=== PATIENT | female | born 1965 | race Caucasian/White ===

== ENCOUNTER → 2017-05-28 | Outpatient (CLI) | payer BC ==
[~2017-05-28] MED LIST: /ONDA4TA SL; /PANT40TA OR; CIPR25SS OR; DICY20TA2 OR; FLAG500T OR; PAIN325T OR; TRAM50TA2 OR
[2017-05-28 08:07] LABS: MEAN CORPUSCULAR HEMOGLOBIN 29.9 pg (27.0-33.0); MEAN CORPUSCULAR HGB CONC 33.8 g/dl (32.0-36.5); MEAN CORPUSCULAR VOLUME 88.6 fl (80.0-96.0); RED CELL DISTRIBUTION WIDTH 13.3 % (11.5-14.5); WHITE BLOOD COUNT 6.6 K/mm3 (4.0-10.0)
[2017-05-28 08:44] LABS: ALBUMIN 3.3 GM/DL (3.2-5.2); ALKALINE PHOSPHATASE 64 U/L (45-117); ALT/SGPT 29 U/L (12-78); ANION GAP 11 MEQ/L (8-16); AST/SGOT 16 U/L (15-37); BILIRUBIN,TOTAL 0.4 MG/DL (0.2-1.0); BLOOD UREA NITROGEN 17 MG/DL (7-18); CALCIUM LEVEL 8.7 MG/DL (8.5-10.1); CARBON DIOXIDE LEVEL 25 MEQ/L (21-32); CHLORIDE LEVEL 107 MEQ/L (98-107); CHOLESTEROL LEVEL 179 MG/DL (<200); CREATININE FOR GFR 0.87 MG/DL (0.55-1.02); GLOMERULAR FILTRATION RATE > 60.0 (>58); GLUCOSE, FASTING 89 MG/DL (70-105); PERCENT SATURATION 23.8 % (13.2-45.0); POTASSIUM SERUM 3.7 MEQ/L (3.5-5.1); SODIUM LEVEL 143 MEQ/L (136-145); THYROXINE (T4) 10.4 UG/DL (4.5-12.0); TOTAL IRON BINDING CAPACITY 323 UG/DL (250-450); TOTAL PROTEIN 7.4 GM/DL (6.4-8.2); TRIGLYCERIDES LEVEL 304 MG/DL (<150)
[2017-05-28 10:44] LABS: LUTEINIZING HORMONE 8.3 mIU/mL
[2017-05-28 10:45] LABS: FOLLICLE STIMULATING HORMONE 26.2 mIU/mL; VITAMIN B12 LEVEL 283 PG/ML (247-911)
== END ==
LOC: M LAB 07:30
PROVIDERS: ATTEND Family Medicine
DX: D64.9 Anemia, unspecified (principal); R53.83 Other fatigue

== ENCOUNTER → 2017-06-18 | Outpatient (CLI) | payer BC ==
--- NOTE | 2017-06-18 10:42 | REP ---
PELVIC ULTRASOUND: Real-time sonographic evaluation of the pelvis is performed utilizing transabdominal and endovaginal technique. The bladder measures 6.5 x 4.7 x 7.1 cm. There patient has had prior hysterectomy and right salpingo-oophorectomy. The left ovary measures 6.0 x 2.6 x 3.1 cm. The left ovary measures 6.0 x 2.6 x 3.1 cm. A cyst of the left ovary is simple in nature measuring 3.1 x 2.1 x 3.0 cm and another smaller simple cyst is seen measuring 2.5 x 1.8 x 2.4 cm. There is also a 1.3 cm cyst. Hyperechoic nodule in the vaginal cuff measures 8 mm in diameter possibly representing a complex cyst. No free fluid is seen. IMPRESSION: Status post SAMMIE-RSO. Left ovary is enlarged containing simple cysts as discussed above.
== END ==
LOC: M WHC 09:28
PROVIDERS: ATTEND Nurse Practitioner Women's Health
DX: R10.32 Left lower quadrant pain (principal)

== ENCOUNTER 2018-04-17 19:05 | Emergency (ER) | payer BC ==
[2018-04-17 19:53] LABS: BASO % 0.2 % (0.0-1.0); EOS # 0.1 10^3/uL (0.0-0.50); EOS % 0.8 % (0.0-3.0); HEMATOCRIT 40.2 % (36.0-47.0); HEMOGLOBIN 13.2 g/dl (12.0-15.5); IMMATURE GRANULOCYTE % 0.3 % (0-3.0); LYMPH # 1.5 10^3/uL (1.5-4.5); LYMPH % 14.9 % (24.0-44.0); MEAN CORPUSCULAR HEMOGLOBIN 28.8 pg (27.0-33.0); MEAN CORPUSCULAR HGB CONC 32.8 g/dl (32.0-36.5); MEAN CORPUSCULAR VOLUME 87.8 fl (80.0-96.0); MONO # 0.7 10^3/uL (0.0-0.8); MONO % 7.3 % (0.0-5.0); NEUTROPHILS # 7.8 10^3/uL (1.8-7.7); NEUTROPHILS % 76.5 % (36.0-66.0); PLATELET COUNT, AUTOMATED 286 10^3/uL (150-450); RED BLOOD COUNT 4.58 10^6/uL (4.00-5.40); RED CELL DISTRIBUTION WIDTH 12.4 % (11.5-14.5); WHITE BLOOD COUNT 10.2 10^3/uL (4.0-10.0)
[2018-04-17 20:17] LABS: ALBUMIN 3.6 GM/DL (3.2-5.2); ALKALINE PHOSPHATASE 75 U/L (45-117); ALT/SGPT 31 U/L (12-78); ANION GAP 8 MEQ/L (8-16); AST/SGOT 28 U/L (7-37); BILIRUBIN,DIRECT 0.1 MG/DL (0.0-0.2); BILIRUBIN,TOTAL 0.7 MG/DL (0.2-1.0); BLOOD UREA NITROGEN 17 MG/DL (7-18); CALCIUM LEVEL 9.1 MG/DL (8.5-10.1); CARBON DIOXIDE LEVEL 28 MEQ/L (21-32); CHLORIDE LEVEL 106 MEQ/L (98-107); GLOMERULAR FILTRATION RATE > 60.0 (>51); GLUCOSE, FASTING 99 MG/DL (70-100); LIPASE 267 U/L (73-393); POTASSIUM SERUM 3.9 MEQ/L (3.5-5.1); SODIUM LEVEL 142 MEQ/L (136-145); TOTAL PROTEIN 7.6 GM/DL (6.4-8.2)
[2018-04-17] MEDS: NS 1,000 ML IV (20:22)
[2018-04-17] MEDS: ONDANSETRON 4MG/2ML VIAL (J2405) IV (20:23)
[2018-04-17] MEDS: MORPHINE 4 MG/ML 1ML VIAL/SYRINGE (J2270) IV (20:23)
[2018-04-17] MEDS ORDERED: ISOVUE-370 76% 100ML VIAL (Q9967) As Ordered (20:23)
[2018-04-17] MEDS: ONDANSETRON 4 MG ORAL DISINTEGRATING TAB (Q0162 PER 1MG) PO (22:00)
[2018-04-17] MEDS: OXYCODONE/APAP 5MG/325MG(BULK FOR ED) 1 TABLET PO (22:00)
[2018-04-17] MEDS: metroNIDAZOLE (FLAGYL) 500 MG TAB PO (22:00)
[2018-04-17] MEDS: CIPROFLOXACIN 500 MG TAB PO (22:00)
== END 2018-04-17 22:10 | disposition home or self-care (01) ==
LOC: M ED 19:05
DX: K57.32 Diverticulitis of large intestine without perforation or abscess without bleeding (principal); Z88.5 Allergy status to narcotic agent; Z79.899 Other long term (current) drug therapy
CPT/HCPCS: J2270

== ENCOUNTER 2018-05-18 19:17 | Emergency (ER) | payer BC | END 2018-05-18 20:04 | disposition home or self-care (01) | LOC: M ED 19:17 | DX: S50.11XA Contusion of right forearm, initial encounter (principal); W01.0XXA Fall on same level from slipping, tripping and stumbling without subsequent striking against object, initial encounter; Y92.098 Other place in other non-institutional residence as the place of occurrence of the external cause; I10 Essential (primary) hypertension; J45.909 Unspecified asthma, uncomplicated; K21.9 Gastro-esophageal reflux disease without esophagitis; G43.909 Migraine, unspecified, not intractable, without status migrainosus; Z85.41 Personal history of malignant neoplasm of cervix uteri; Z88.5 Allergy status to narcotic agent; Z79.899 Other long term (current) drug therapy | CPT/HCPCS: 73090 ==

== ENCOUNTER → 2018-11-18 | Outpatient (CLI) | payer BC ==
[~2018-11-18] MED LIST changes: +BYST10TA2 PO; +CIPR-249 PO; +FLAG500T PO; +PERC5TAB12 PO; +PHEN-239 PO; +SING10TA32 PO; +TRIAPOW43 PO; +ZOFR4TAB14 PO; +ZYRTTAB8 PO
--- NOTE | 2018-11-19 13:37 | REP ---
ULTRASOUND OF THE PELVIS: This study is compared to that on 11/05/2015 and earlier studies. The patient is post hysterectomy and right oophorectomy. On the present study there is a cyst in the left ovary measuring 1.3 x 0.7 x 1.0 cm. The bladder measures 9.3 x 6.5 x 9.1 cm. IMPRESSION: Post hysterectomy and right oophorectomy. Again identified left ovary cysts. These have been seen in the past and there has been no significant change. Electronically Signed by Joel Escobedo MD 11/19/2018 02:09 P
== END ==
LOC: M RAD 16:56
PROVIDERS: ATTEND Family Medicine
DX: R10.2 Pelvic and perineal pain (principal); R19.04 Left lower quadrant abdominal swelling, mass and lump

== ENCOUNTER → 2019-01-27 | Outpatient (CLI) | payer BC ==
[~2019-01-27] MED LIST changes: -/ONDA4TA SL; -/PANT40TA OR; +ONDA-1 SL; +PROT1TAB2 OR
[2019-01-27 09:44] LABS: HEMATOCRIT 42.9 % (36.0-47.0); HEMOGLOBIN 13.9 g/dl (12.0-15.5); MEAN CORPUSCULAR HEMOGLOBIN 29.4 pg (27.0-33.0); MEAN CORPUSCULAR HGB CONC 32.4 g/dl (32.0-36.5); MEAN CORPUSCULAR VOLUME 90.7 fl (80.0-96.0); PLATELET COUNT, AUTOMATED 299 10^3/uL (150-450); RED BLOOD COUNT 4.73 10^6/uL (4.00-5.40); WHITE BLOOD COUNT 5.3 10^3/uL (4.0-10.0)
[2019-01-27 10:10] LABS: INR 0.88
[2019-01-27 10:17] LABS: ALBUMIN 3.9 GM/DL (3.2-5.2); ALT/SGPT 31 U/L (12-78); BILIRUBIN,TOTAL 0.4 MG/DL (0.2-1.0); BLOOD UREA NITROGEN 23 MG/DL (7-18); CALCIUM LEVEL 9.2 MG/DL (8.5-10.1); CARBON DIOXIDE LEVEL 29 MEQ/L (21-32); CHLORIDE LEVEL 105 MEQ/L (98-107); CHOLESTEROL LEVEL 197 MG/DL (<200); CHOLESTEROL RISK RATIO 4.104 (<5); CREATININE FOR GFR 0.88 MG/DL (0.55-1.30); GLOMERULAR FILTRATION RATE > 60.0 (>51); GLUCOSE, FASTING 90 MG/DL (70-100); HDL CHOLESTEROL 48 MG/DL (>40); LDL CHOLESTEROL 111 MG/DL (<100); NON-HDL-C 149 MG/DL; SODIUM LEVEL 140 MEQ/L (136-145); TOTAL PROTEIN 7.7 GM/DL (6.4-8.2); TRIGLYCERIDES LEVEL 189 MG/DL (<150)
[2019-01-27 11:41] LABS: HEMOGLOBIN A1c 5.7 %
--- NOTE | 2019-01-27 17:00 | ECGEPIP ---
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
--- NOTE | 2019-01-28 01:19 | REP ---
Clinical: Hypertension . Comparison: 05/27/2016 . Technique: PA and lateral. Findings: The mediastinum and cardiac silhouette are normal. The lung chapman are clear and without acute consolidation, effusion, or pneumothorax. The skeletal structures are intact and normal. Impression: 1. No acute cardiopulmonary process. Electronically Signed by Beka Gann MD 01/28/2019 01:10 A
== END ==
LOC: M LAB 09:04
PROVIDERS: ATTEND Family Medicine
DX: I10 Essential (primary) hypertension (principal)

== ENCOUNTER 2019-02-16 06:12 | Day surgery (SDC) | payer BC ==
[~2019-02-16] VITALS: Ht 160 cm; Wt 78.4 kg
[~2019-02-16 06:12] MED LIST changes: +CETI10CA2 PO; +ZOFR4TAB16 PO
[2019-02-16 06:46] LABS: HEMATOCRIT 40.9 % (36.0-47.0); HEMOGLOBIN 13.3 g/dl (12.0-15.5); MEAN CORPUSCULAR HEMOGLOBIN 29.6 pg (27.0-33.0); MEAN CORPUSCULAR HGB CONC 32.5 g/dl (32.0-36.5); MEAN CORPUSCULAR VOLUME 91.1 fl (80.0-96.0); PLATELET COUNT, AUTOMATED 277 10^3/uL (150-450); RED BLOOD COUNT 4.49 10^6/uL (4.00-5.40); WHITE BLOOD COUNT 6.3 10^3/uL (4.0-10.0)
[2019-02-16] MEDS ORDERED: BUPIVACAINE HCL 0.25% 30 ML VIAL As Ordered ONE (06:52)
[2019-02-16] MEDS ORDERED: CVS1CAP5 PO (06:55)
[2019-02-16] MEDS ORDERED: LIDOCAINE 2% INJ 100 MG/5 ML SDV (FOR ANES.) As Ordered ONE (07:10)
[2019-02-16] MEDS ORDERED: ROCURONIUM BROMIDE 50 MG/5 ML VIAL As Ordered ONE (07:10)
[2019-02-16] MEDS ORDERED: PROPOFOL 200 MG/20 ML VIAL As Ordered ONE (07:10)
[2019-02-16] MEDS ORDERED: fentaNYL 250 MCG/5 ML INJECTION (J3010) As Ordered ONE (07:11)
[2019-02-16] MEDS ORDERED: MIDAZOLAM INJ 2 MG/2 ML VIAL (J2250) As Ordered ONE (07:11)
[2019-02-16] MEDS ORDERED: SCOPOLAMINE 1MG TRANSDERMAL PATCH As Ordered ONE (07:28)
[2019-02-16] MEDS ORDERED: LR 1,000 ML IV SCH ×2 (07:45→09:15)
[2019-02-16] MEDS ORDERED: SCOPOLAMINE 1MG TRANSDERMAL PATCH TOP ONE (08:00)
[2019-02-16] MEDS ORDERED: dexameTHASONE 4 MG/ML 1ML VIAL (J1100) As Ordered ONE (08:12)
[2019-02-16] MEDS ORDERED: METOCLOPRAMIDE INJ 10MG/2ML VIAL (J2765) As Ordered ONE (08:12)
[2019-02-16] MEDS ORDERED: ONDANSETRON 4MG/2ML VIAL (J2405) As Ordered ONE ×2 (08:12→12:03)
[2019-02-16] MEDS ORDERED: KETOROLAC 60 MG/2 ML VIAL (J1885) As Ordered ONE (08:12)
[2019-02-16] MEDS ORDERED: GLYCOPYRROLATE INJ 0.2 MG/ML 2 ML VIAL As Ordered ONE (08:41)
[2019-02-16] MEDS ORDERED: NEOSTIGMINE 10 MG/10 ML VIAL (J2710) As Ordered ONE (08:41)
[2019-02-16] MEDS ORDERED: fentaNYL 100 MCG/2 ML INJECTION (J3010) IV PRN (09:15)
[2019-02-16] MEDS ORDERED: PERCOCET 5MG/325MG TAB PO PRN ×2 (09:15)
[2019-02-16] MEDS ORDERED: ONDANSETRON 4MG/2ML VIAL (J2405) IV PRN (09:15)
[2019-02-16] MEDS ORDERED: OXYC1TAB23 PO (11:03)
[2019-02-16] MEDS ORDERED: ACETAMINOPHEN TAB 650MG DOSE (2X325MG) As Ordered ONE (12:25)
[2019-02-16] MEDS ORDERED: ACETAMINOPHEN TAB 650MG DOSE (2X325MG) PO PRN (12:45)
[2019-02-16 13:25] VITALS: BP 122/67
[2019-02-16] MEDS ORDERED: KETOROLAC 30 MG/ML VIAL (J1885) IV PRN (15:00)
--- NOTE | 2019-02-18 12:25 | RO ---
DATE OF PROCEDURE: 02/16/2019 PREOPERATIVE DIAGNOSES 1. Endometriosis. 2. Chronic pelvic pain. POSTOPERATIVE DIAGNOSES 1. Endometriosis. 2. Chronic pelvic pain. OPERATIVE PROCEDURE: 1. Diagnostic operative laparoscopy with left salpingo-oophorectomy. 2. Lysis of adhesions. SURGEON: Trinity Manley MD PASSPORT SUPPORT MANAGER: Kashif Valdes MD ANESTHESIA: General endotracheal anesthesia. ESTIMATED BLOOD LOSS: 5 mL IV FLUIDS: 1 liter of lactated Ringer's solution. URINE OUTPUT: 50 mL PREOPERATIVE ANTIBIOTICS: None. INFECTION CLASSIFICATION: 1. OPERATIVE FINDINGS: Dense left-sided omental adhesions to the pelvic sidewall, normal-appearing left ovary. SPECIMENS: Left fallopian tube and ovary. DESCRIPTION OF OPERATION After informed consent was obtained and written consent was reviewed, the patient was brought to the operating room where she was placed under general endotracheal anesthesia. She was left in the supine position, was prepped and draped in a normal sterile fashion. A Carlisle catheter had been placed and set to gravity. A time out in the operating room was then performed identifying the patient, procedure to be performed as well as drug allergies. 0.25% Marcaine was infused in umbilical region and an 11 mm trocar sleeve was advanced through this incision. The laparoscope was then replaced revealing intra-abdominal placement. A pneumoperitoneum was then obtained with CO2 gas. Two additional port sites were placed on each side of the umbilicus. These areas were infused with 0.25% Marcaine. Incision was made in each one of these areas and 5 mm trocars and sleeves advanced through each one of these incisions under direct visualization. Next, the abdomen was surveyed with the above-noted findings. Using Harmonic Jean-Claude scalpel device, lysis of adhesions was performed releasing the omentum from the pelvic sidewall and clearing up this area with visualization of the left adnexa. Once this was achieved noting hemostasis at the surgical sites, the left infundibulopelvic ligament was cauterized and ligated with good hemostasis noted. The specimen was then removed from the umbilical port site. Surgical sites were reinspected and once again noted to be hemostatic. The pneumoperitoneum was then released. Instruments were removed from the patient's abdomen. Trocars were removed. The skin over all three port sites were closed with #4-0 Monocryl and was dressed with Dermabond. The Carlisle catheter was then removed. The patient was then awakened from general anesthesia and taken to recovery in stable condition. Counts were correct. Dr. Valdes my surgical technician played an essential role during the operation. He assisted with all port placement, tissue retraction, identification, lysis of adhesions as well as the laparoscopic salpingo-oophorectomy, and wound closure. MICHELINE
== END 2019-02-16 13:42 | disposition home or self-care (01) ==
LOC: M SDC 06:12
PROVIDERS: ATTEND Obstetrics & Gynecology
DX: R10.2 Pelvic and perineal pain (principal); N80.8 Other endometriosis; N73.6 Female pelvic peritoneal adhesions (postinfective); I10 Essential (primary) hypertension; K58.8 Other irritable bowel syndrome; K44.9 Diaphragmatic hernia without obstruction or gangrene; K21.9 Gastro-esophageal reflux disease without esophagitis; F32.9 Major depressive disorder, single episode, unspecified; J45.909 Unspecified asthma, uncomplicated; Z79.899 Other long term (current) drug therapy; Z88.5 Allergy status to narcotic agent
CPT/HCPCS: 36415; 58661; 85027; 86850; 86900; 86901; 88305; J1100; J1885; J2250; J2405; J2710; J2765; J3010

== ENCOUNTER 2019-12-03 20:50 | Emergency (ER) | payer BC ==
[~2019-12-03] VITALS: Ht 160 cm; Wt 78.8 kg
[~2019-12-03 20:50] MED LIST changes: +CVS1CAP5 PO; +OXYC1TAB23 PO
[2019-12-03] MEDS ORDERED: ONDANSETRON 4MG/2ML VIAL (J2405) IV ONE (21:45)
[2019-12-03] MEDS ORDERED: NS 1,000 ML IV ONE (21:45)
[2019-12-03 22:15] LABS: BASO % 0.1 % (0.0-1.0); EOS # 0.2 10^3/uL (0.0-0.5); EOS % 2.8 % (0.0-3.0); HEMATOCRIT 42.8 % (36.0-47.0); HEMOGLOBIN 13.7 g/dl (12.0-15.5); LYMPH # 0.8 10^3/uL (1.5-5.0); LYMPH % 9.3 % (24.0-44.0); MEAN CORPUSCULAR HEMOGLOBIN 28.7 pg (27.0-33.0); MEAN CORPUSCULAR VOLUME 89.5 fl (80.0-96.0); MONO # 0.3 10^3/uL (0.0-0.8); NEUTROPHILS # 7.1 10^3/uL (1.5-8.5); NEUTROPHILS % 83.6 % (36.0-66.0); PLATELET COUNT, AUTOMATED 275 10^3/uL (150-450); RED BLOOD COUNT 4.78 10^6/uL (4.00-5.40); WHITE BLOOD COUNT 8.5 10^3/uL (4.0-10.0)
[2019-12-03 22:37] LABS: ALBUMIN 3.7 GM/DL (3.2-5.2); ALT/SGPT 32 U/L (12-78); BILIRUBIN,DIRECT 0.2 MG/DL (0.0-0.2); BILIRUBIN,TOTAL 0.6 MG/DL (0.2-1.0); BLOOD UREA NITROGEN 25 MG/DL (7-18); CALCIUM LEVEL 9.2 MG/DL (8.5-10.1); CARBON DIOXIDE LEVEL 28 MEQ/L (21-32); CHLORIDE LEVEL 104 MEQ/L (98-107); CREATININE FOR GFR 0.88 MG/DL (0.55-1.30); GLOMERULAR FILTRATION RATE > 60.0 (>51); GLUCOSE, FASTING 102 MG/DL (70-100); POTASSIUM SERUM 3.8 MEQ/L (3.5-5.1); SODIUM LEVEL 138 MEQ/L (136-145); TOTAL PROTEIN 7.4 GM/DL (6.4-8.2)
[2019-12-03] MEDS ORDERED: ONDA4TAB6 PO (23:10)
[2019-12-03 23:24] VITALS: BP 134/80
== END 2019-12-04 00:15 | disposition home or self-care (01) ==
LOC: M ED 20:50
DX: A08.4 Viral intestinal infection, unspecified (principal); Z79.899 Other long term (current) drug therapy; Z88.5 Allergy status to narcotic agent
CPT/HCPCS: 80048; 80076; 85025; 96361; 96374; 99284; J2405

== ENCOUNTER → 2020-05-22 | Outpatient (CLI) | payer BC ==
[~2020-05-22] MED LIST changes: +ONDA4TAB6 PO
--- NOTE | 2020-05-22 15:50 | REPVR ---
PROCEDURE INFORMATION: Exam: CT Maxillofacial Without Contrast, Sinus Exam date and time: 05/22/2020 3:36 PM Age: 54 years old Clinical indication: Condition or disease; Other: Sinusitis; Additional info: J32.4 chronic pnsinusitis TECHNIQUE: Imaging protocol: CT Maxillofacial without contrast. Focus on the sinuses. Radiation optimization: All CT scans at this facility use at least one of these dose optimization techniques: automated exposure control; mA and/or kV adjustment per patient size (includes targeted exams where dose is matched to clinical indication); or iterative reconstruction. COMPARISON: No relevant prior studies available. FINDINGS: Frontal sinuses: Normal. No air-fluid levels. Ethmoid air cells: Normal. No air-fluid levels. Sphenoid sinuses: Normal. No air-fluid levels. Maxillary sinuses: Normal. No air-fluid levels. Ostiomeatal units are patent. Orbits: The orbital structures are unremarkable. Nasal cavity/Septum: Mild rightward bowing of the nasal septum is present. Bilateral vitaliy bullosa are noted. Soft tissues: Unremarkable. Bones/joints: Unremarkable. IMPRESSION: No acute abnormality. Electronically signed by: Alon Avila On 05/22/2020 15:50:27 PM
== END ==
LOC: M RAD 15:26
PROVIDERS: ATTEND Otolaryngology
DX: J32.4 Chronic pansinusitis (principal)

== ENCOUNTER 2021-02-14 09:08 | Inpatient (IN) | payer BC ==
[~2021-02-14] VITALS: Ht 160 cm; Wt 77.3 kg
[~2021-02-14 09:08] MED LIST changes: +IBUP-1022 PO; +PRED20TA PO; +VALA1TAB5 PO
[2021-02-14] MEDS ORDERED: ACETAMINOPHEN TAB 650MG DOSE (2X325MG) PO ONE (09:25)
[2021-02-14] MEDS: COMBIVENT RESPIMAT 100-20MCG INHALER 4GM INH SCH ×3 (09:51→10:14)
--- NOTE | 2021-02-14 09:52 | REP ---
INDICATION: Coronavirus workup. Go to priors 01/20/2021 the latest prior also portable COMPARISON: None. TECHNIQUE: Portable FINDINGS: The technique utilized in obtaining the radiograph has magnified the cardiac silhouette and accentuated the interstitial markings. Scattered asymmetric opacities have developed in the lung chapman since the prior exam. These are particular to the right upper and left lower lobe regions. In addition to the portable technique the lung chapman are hypoexpanded further accentuating the suspected findings. There is no change in the osseous structures. IMPRESSION: Scattered opacities and technique as described above. PA and lateral views of the chest with increased inspiration should be considered. <Electronically signed by Cristiano Guerrero > 02/14/21 [id number]
[2021-02-14 10:17] LABS: EOS % 0.5 % (0.0-3.0); HEMATOCRIT 36.9 % (36.0-47.0); HEMOGLOBIN 12.1 g/dl (12.0-15.5); LYMPH # 0.6 10^3/uL (1.5-5.0); LYMPH % 16.1 % (24.0-44.0); MEAN CORPUSCULAR HEMOGLOBIN 29.8 pg (27.0-33.0); MEAN CORPUSCULAR HGB CONC 32.8 g/dl (32.0-36.5); MEAN CORPUSCULAR VOLUME 90.9 fl (80.0-96.0); MONO # 0.1 10^3/uL (0.0-0.8); MONO % 3.3 % (2.0-8.0); NEUTROPHILS # 2.9 10^3/uL (1.5-8.5); NEUTROPHILS % 79.6 % (36.0-66.0); PLATELET COUNT, AUTOMATED 197 10^3/uL (150-450); RED BLOOD COUNT 4.06 10^6/uL (4.00-5.40); WHITE BLOOD COUNT 3.7 10^3/uL (4.0-10.0)
[2021-02-14] MEDS ORDERED: dexameTHASONE 20MG/5ML VIAL (J1100 PER 1MG) IV ONE (10:25)
[2021-02-14] MEDS ORDERED: PRED10TA2 PO (10:35)
[2021-02-14 10:52] LABS: ALBUMIN 2.8 GM/DL (3.2-5.2); ALT/SGPT 49 U/L (12-78); BILIRUBIN,TOTAL 0.3 MG/DL (0.2-1.0); BLOOD UREA NITROGEN 17 MG/DL (7-18); C REACTIVE PROTEIN QUANTITATIV 9.21 MG/DL (0.00-0.30); CALCIUM LEVEL 8.1 MG/DL (8.5-10.1); CARBON DIOXIDE LEVEL 26 MEQ/L (21-32); CHLORIDE LEVEL 104 MEQ/L (98-107); CK-MB VALUE MASS < 1.0 NG/ML (<3.6); CPK CREATINE PHOSPHOKINASE 51 U/L (26-192); FERRITIN 1071 NG/ML (8-252); GLOMERULAR FILTRATION RATE > 60.0 (>51); GLUCOSE, FASTING 95 MG/DL (70-100); LDH LACTATE DEHYDROGENASE 274 U/L (84-246); MB/CK RELATIVE INDEX 1.96 (< OR =4); POTASSIUM SERUM 3.8 MEQ/L (3.5-5.1); SODIUM LEVEL 136 MEQ/L (136-145); TOTAL PROTEIN 6.6 GM/DL (6.4-8.2); TROPONIN I < 0.02 NG/ML (< 0.10)
[2021-02-14] MEDS ORDERED: COMBIVENT RESPIMAT 100-20MCG INHALER 4GM INH PRN (12:15)
[2021-02-14] MEDS ORDERED: ONDANSETRON 4MG/2ML VIAL IV PRN (12:15)
[2021-02-14] MEDS ORDERED: ONDA-83 PO (12:25)
[2021-02-14] MEDS ORDERED: IBUP1TAB6 PO (12:25)
[2021-02-14] MEDS ORDERED: VALA1TAB5 PO (12:26)
[2021-02-14] MEDS ORDERED: TRIA37.5 PO (12:26)
--- NOTE | 2021-02-14 13:04 | HPEPDOC ---
[facility] Medical History & Physical Date of Admission February 14, 2021 Date of Service: February 14, 2021 Primary Care Physician: Richy Arango Attending Physician: YUNG DANIELS MD History and Physical CHIEF COMPLAINT: shortness of breath HISTORY OF PRESENT ILLNESS: Sweta Forrest is a 55 year old female, who recently tested positive for COVID-19, presented to the ED today due to worsening shortness of breath and fatigue. She states her symptoms started late last week with fatigue and shortness of breath, worse on activity. She also noticed nausea, vomiting, and diarrhea over the weekend. She presented to [facility] ED for evaluation and tested positive at that time for COVID-19. She was treated only with IV fluids and sent home with instructions to take tylenol and advil prn and to quarantine. She states that she initially felt better for a day but then her symptoms began to worsen again. She reports recent contacts prior to the onset of symptoms who were asymptomatic but subsequently tests positive for COVID-19. She notes recurrent chills and night sweats at home and fever up to 104F this morning prior to presentation to the ER. She has had a nonproductive cough with chest congestion. She has some pain in the center of her chest which is worse when taking a deep breath and coughing. No palpitations. 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 She was sent home with Valcyclovir and prednisone 60mg. She states she did not tolerate the dose of prednisone and this was lowered by her PCP. Her PCP then extended the course of both valcyclovir and prednisone. Patient notes she was scheduled for the COVID-19 vaccine, but told to delay it while being treated for Soliman's Palsy. PAST MEDICAL HISTORY: Asthma Allergic rhinitis Soliman's Palsy Migraine headaches IBS HTN PAST SURGICAL HISTORY: Hysterectomy Bilateral breast reduction SOCIAL HISTORY: Never smoker. Occasional social alcohol use. No illicit substance use. FAMILY HISTORY: Father with HTN Mother with GI issues, gallbladder disease PGM with pancreatic cancer ALLERGIES: Please see below. REVIEW OF SYSTEMS: 12-point review of systems negative except as listed in HPI HOME MEDICATIONS: Please see below. PHYSICAL EXAMINATION: VITAL SIGNS: See below GENERAL: Alert, comfortable, in no acute distress HEENT: Normocephalic, atraumatic, sclera anicteric, moist mucous membranes NECK: Supple, trachea midline, no lymphadenopathy CARDIOVASCULAR: Regular rate and rhythm, normal S1 and S2. No murmurs, rubs, or gallops RESPIRATORY: Clear to auscultation bilaterally with equal air entry bilaterally. No wheezing, rhonchi, or rales. ABDOMEN: Soft, nontender, nondistended, bowel sounds present. EXTREMITIES: No cyanosis or edema. Pulses 2+/4 in bilateral upper and lower extremities SKIN: [place], warm, dry NEUROLOGIC: Alert and oriented x3 to person, place and time. No focal deficits appreciated PSYCHIATRIC: Mood and affect appropriate LABORATORY DATA: See below. IMAGING: - CXR Scattered opacities and technique as described above. PA and lateral views of the chest with increased inspiration should be considered. MICROBIOLOGY: Please see below. ASSESSMENT: 55 year old female with PMHx of asthma, allergic rhinitis, migraine headaches, IBS, and recently diagnosed Soliman's Palsy who presented to the ED with known COVID-19 symptoms and worsening symptoms, found to have hypoxia and bilateral infiltrates on CXR, admitted for management of COVID-19 pneumonia PLAN: # Acute hypoxia 2/2 COVID-19 pneumonia - supplemental O2 to maintain saturations >90% - telemetry for tachycardia - trend inflammatory labs q2d. trend cbc, bmp, mg, crp, and ldh daily - d-dimer not elevated. will proceed with standard DVT prophylaxis dosing. - tx with IV remdesivir x5 days and IV Decadron x10 days - mucinex, acapella, and incentive spirometer. combivent q4h prn # Asthma / allergic rhinitis - continue home zyrtec and montelukast - currently no home inhalers # HTN - continue home Dyazide and nebivolol # Migraine headaches - continue home nebivolol # Soliman's Palsy - d/c home prednisone as she will be on decadron - completed course of Valacyclovir, will also d/c # IBS - continue probiotic DVT prophylaxis: sc lovenox 40mg DISPOSITION: admitted inpatient to med/surg pending clinical improvement Vital Signs Vital Signs Date Time Temp Pulse Resp B/P (MAP) Pulse Ox O2 Delivery O2 Flow Rate FiO2 02/14/21 11:26 101.5 02/14/21 11:08 100 02/14/21 11:00 103/64 (77) 02/14/21 10:53 18 94 Nasal Cannula 2.0 Laboratory Data Labs 24H Laboratory Tests 2 02/14/21 10:00: POC pH (Misc Panel) 7.570H, POC Base Excess (Misc Panel) 3.0, POC Saturated Percent O2 (Misc) 94L, POC pO2 (Misc Panel) 59.0L, POC pCO2 (Misc Panel) 27.8L, POC HCO3 (Misc Panel) 25.5, POC Total CO2 (Misc Panel) 26.0 02/14/21 10:05: Immature Granulocyte % (Auto) 0.5, Neutrophils (%) (Auto) 79.6H, Lymphocytes (%) (Auto) 16.1L, Monocytes (%) (Auto) 3.3, Eosinophils (%) (Auto) 0.5, Basophils (%) (Auto) 0.0, Neutrophils # (Auto) 2.9, Lymphocytes # (Auto) 0.6L, Monocytes # (Auto) 0.1, Eosinophils # (Auto) 0.0, Basophils # (Auto) 0.0, Nucleated Red Blood Cells % (auto) 0.0, D-Dimer, Quantitative 281.69, Anion Gap 6L, Glomerular Filtration Rate > 60.0, Lactic Acid Level 0.9, Calcium Level 8.1L, Ferritin 1071H, Total Bilirubin 0.3, Aspartate Amino Transf (AST/SGOT) 36, Alanine Aminotransferase (ALT/SGPT) 49, Alkaline Phosphatase 49, Lactate Dehydrogenase 274H, Total Creatine Kinase 51, Creatine Kinase MB < 1.0, Creatine Kinase MB Relative Index 1.96, Troponin I < 0.02, C-Reactive Protein, Quantitative 9.21H, Total Protein 6.6, Albumin 2.8L, Albumin/Globulin Ratio 0.7L CBC/BMP Laboratory Tests 02/14/21 10:05 Microbiology Microbiology 02/14/21 Blood Culture, Received Pending 02/14/21 Blood Culture, Received Pending Home Medications Scheduled Cetirizine HCl (ZyrTEC) 10 Mg Capsule, 10 MG PO DAILY Lactobacillus Combination No.4 (Probiotic) 1 Each Capsule, 1 CAP PO DAILY Montelukast Sodium (Singulair) 10 Mg Tab, 10 MG PO DAILY Nebivolol HCl (Bystolic) 10 Mg Tab, 10 MG PO DAILY Prednisone (Prednisone) 10 Mg Tablet, 10 MG PO DAILY Triamterene/Hydrochlorothiazid (Triamterene-Hctz 37.5-25 mg Tb) 1 Each Tablet, 1 TAB PO DAILY Valacyclovir HCl (Valacyclovir) 1,000 Mg Tablet, 1 GM PO TID STARTED 02/04/21 X 10 DAYS Scheduled PRN Ibuprofen (Ibuprofen) 600 Mg Tablet, 600 MG PO Q6H PRN for PAIN / FEVER Ondansetron HCl (Ondansetron HCl) 4 Mg Tablet, 4 MG PO TID PRN for NAUSEA OR VOMITING Allergies Coded Allergies: codeine (Verified Adverse Reaction, Unknown, N/V/, 02/16/19) GME ATTESTATION GME ATTESTATION My faculty preceptor for this patient encounter was physically present during the encounter and was fully available. All aspects of the patient interview, examination, medical decision making process, and medical care plan development were reviewed and approved by the faculty preceptor. The faculty preceptor is aware and concurs with the plan as stated in the body of this note and will attest to such by his/her cosignature. ATTENDING NOTE I, Yung Daniels, have independently examined this patient and performed my own physical exam, as well as reviewed the documentation and edited where necessary. I have discussed in detail with the resident / student the findings and plan of treatment as documented by the resident / student and edited their note. I agree with their findings and treatment plan and have edited their documentation. I will continue to follow the patient during this hospital stay. MIKAL RAMIREZ D.O. February 14, 2021 13:03 YUNG DANIELS MD February 14, 2021 16:12
[2021-02-14 13:09] VITALS: BP 90/70
[2021-02-14] MEDS: MONTELUKAST 10 MG TAB PO SCH (15:03)
[2021-02-14] MEDS: LACTOBACILLUS ACIDOPHILUS CAP (BACID) PO SCH (15:04)
[2021-02-14] MEDS: CETIRIZINE (ZyrTEC) 10 MG TAB PO SCH (15:04)
[2021-02-14] MEDS: guaiFENesin ER 600 MG TAB PO SCH ×2 (15:04→19:22)
[2021-02-14] MEDS: ENOXAPARIN 40MG/0.4ML SYRINGE (J1650 PER 10MG) SC SCH (15:04)
[2021-02-14] MEDS: NEBIVOLOL 5 MG TAB (BYSTOLIC) PO SCH (15:49)
[2021-02-14] MEDS: DYAZIDE 37.5/25 CAP (TRIAM/HCTZ) PO SCH (15:49)
[2021-02-14] MEDS ORDERED: valACYclovir HCL 500 MG TAB PO SCH (16:00)
[2021-02-14] MEDS ORDERED: REMDESIVIR 200 MG in NS 250 ML IV ONE (16:00)
[2021-02-14] MEDS ORDERED: SODIUM CHLORIDE 0.9% INJ 10 ML SYR IV ONE (18:00)
[2021-02-14 19:18] VITALS: BP 101/66
[2021-02-14] MEDS: ACETAMINOPHEN TAB 650MG DOSE (2X325MG) PO PRN (19:22)
[2021-02-15 04:57] VITALS: BP 104/75
[2021-02-15 08:42] VITALS: BP 92/62
[2021-02-15] MEDS: ENOXAPARIN 40MG/0.4ML SYRINGE (J1650 PER 10MG) SC SCH (08:45)
[2021-02-15] MEDS: CETIRIZINE (ZyrTEC) 10 MG TAB PO SCH (08:46)
[2021-02-15] MEDS: LACTOBACILLUS ACIDOPHILUS CAP (BACID) PO SCH (08:46)
[2021-02-15] MEDS: DYAZIDE 37.5/25 CAP (TRIAM/HCTZ) PO SCH ×2 (08:46→09:00)
[2021-02-15] MEDS: guaiFENesin ER 600 MG TAB PO SCH ×2 (08:46→20:07)
[2021-02-15] MEDS: MONTELUKAST 10 MG TAB PO SCH (08:46)
[2021-02-15] MEDS: dexameTHASONE 4 MG/ML 1ML VIAL (J1100 PER 1MG) IV SCH (08:46)
[2021-02-15] MEDS: NEBIVOLOL 5 MG TAB (BYSTOLIC) PO SCH (08:47)
[2021-02-15] MEDS: ACETAMINOPHEN TAB 650MG DOSE (2X325MG) PO PRN (08:47)
[2021-02-15 09:42] LABS: HEMATOCRIT 36.8 % (36.0-47.0); MEAN CORPUSCULAR HEMOGLOBIN 29.9 pg (27.0-33.0); MEAN CORPUSCULAR HGB CONC 32.6 g/dl (32.0-36.5); MEAN CORPUSCULAR VOLUME 91.5 fl (80.0-96.0); PLATELET COUNT, AUTOMATED 238 10^3/uL (150-450); RED BLOOD COUNT 4.02 10^6/uL (4.00-5.40); WHITE BLOOD COUNT 5.9 10^3/uL (4.0-10.0)
[2021-02-15 10:06] LABS: LYMPHOCYTES 6 % (16-44); MONOCYTES 1 % (0-5); NEUTROPHILS 93 % (28-66); PLATELET ESTIMATE NORMAL (NORMAL)
[2021-02-15 10:18] LABS: ALBUMIN 2.7 GM/DL (3.2-5.2); ALT/SGPT 55 U/L (12-78); BILIRUBIN,DIRECT < 0.1 MG/DL (0.0-0.2); BILIRUBIN,TOTAL 0.2 MG/DL (0.2-1.0); BLOOD UREA NITROGEN 23 MG/DL (7-18); CALCIUM LEVEL 8.8 MG/DL (8.5-10.1); CARBON DIOXIDE LEVEL 22 MEQ/L (21-32); CHLORIDE LEVEL 106 MEQ/L (98-107); CREATININE FOR GFR 0.77 MG/DL (0.55-1.30); GLOMERULAR FILTRATION RATE > 60.0 (>51); GLUCOSE, FASTING 204 MG/DL (70-100); LDH LACTATE DEHYDROGENASE 299 U/L (84-246); MAGNESIUM LEVEL 2.3 MG/DL (1.8-2.4); POTASSIUM SERUM 3.6 MEQ/L (3.5-5.1); SODIUM LEVEL 138 MEQ/L (136-145); TOTAL PROTEIN 6.6 GM/DL (6.4-8.2)
[2021-02-15 11:29] VITALS: O2SAT 95
[2021-02-15 14:00] VITALS: BP 97/54
--- NOTE | 2021-02-15 14:38 | IPNPDOC ---
Text Note Date of Service The patient was seen on 02/15/21. NOTE SUBJECTIVE: Patient is seen and examined this morning at bedside. She states she is feeling short of breath only on exertion, mainly when getting up to the bathroom. She does note fatigue after sitting in a chair for a while or brushing her teeth. She feels well when resting. OBJECTIVE: VITAL SIGNS: See below GENERAL: Alert, comfortable, in no acute distress HEENT: Normocephalic, atraumatic, sclera anicteric, moist mucous membranes NECK: Supple, trachea midline, no lymphadenopathy CARDIOVASCULAR: Regular rate and rhythm, normal S1 and S2. No murmurs, rubs, or gallops RESPIRATORY: Clear to auscultation bilaterally with equal air entry bilaterally. No wheezing, rhonchi, or rales. ABDOMEN: Soft, nontender, nondistended, bowel sounds present. EXTREMITIES: No cyanosis or edema. Pulses 2+/4 in bilateral upper and lower extremities SKIN: [place], warm, dry NEUROLOGIC: Alert and oriented x3 to person, place and time. No focal deficits appreciated PSYCHIATRIC: Mood and affect appropriate ASSESSMENT/PLAN: 55 year old female with PMHx of asthma, allergic rhinitis, migraine headaches, IBS, and recently diagnosed Soliman's Palsy who presented to the ED with known COVID-19 symptoms and worsening symptoms, found to have hypoxia and bilateral infiltrates on CXR, admitted for management of COVID-19 pneumonia # Acute hypoxia 2/2 COVID-19 pneumonia - supplemental O2 to maintain saturations >90%. No requiring 4lpm via nasal cannula. - telemetry for tachycardia, improved - trend inflammatory labs q2d. trend cbc, bmp, mg, crp, and ldh daily - d-dimer not elevated. will proceed with standard DVT prophylaxis dosing. - tx with IV remdesivir x5 days and IV Decadron x10 days - mucinex, acapella, and incentive spirometer. combivent q4h prn # Asthma / allergic rhinitis - continue home zyrtec and montelukast - currently no home inhalers # HTN - continue home Dyazide and nebivolol # Migraine headaches - continue home nebivolol # Soliman's Palsy - d/c home prednisone as she will be on decadron - completed course of Valacyclovir, will also d/c # IBS - continue probiotic DVT prophylaxis: sc lovenox 40mg DISPOSITION: admitted inpatient to [facility]/surg pending clinical improvement VS,Fishbone, I+O VS, Fishbone, I+O Laboratory Tests 02/15/21 09:22 Vital Signs Date Time Temp Pulse Resp B/P (MAP) Pulse Ox O2 Delivery O2 Flow Rate FiO2 02/15/21 14:00 98.7 80 18 97/54 (68) 95 Nasal Cannula 4.0 I&O- Last 24 Hours up to 6 AM 02/15/21 06:00 Intake Total 590 ml Output Total 550 ml Balance 40 ml GME ATTESTATION GME ATTESTATION My faculty preceptor for this patient encounter was physically present during the encounter and was fully available. All aspects of the patient interview, e xamination, medical decision making process, and medical care plan development were reviewed and approved by the faculty preceptor. The faculty preceptor is aware and concurs with the plan as stated in the body of this note and will attest to such by his/her cosignature. ATTENDING NOTE I, Yung Salinas, have independently examined this patient and performed my own physical exam, as well as reviewed the documentation and edited where necessary. I have discussed in detail with the resident / student the findings and plan of treatment as documented by the resident / student and edited their note. I agree with their findings and treatment plan and have edited their documentation. I will continue to follow the patient during this hospital stay. MIKAL RAMIREZ D.O. February 15, 2021 14:38 YUNG SALINAS MD February 15, 2021 15:02
[2021-02-15] MEDS: REMDESIVIR 100 MG in NS 250 ML IV SCH (15:21)
[2021-02-15] MEDS: SODIUM CHLORIDE 0.9% INJ 10 ML SYR IV SCH (15:22)
[2021-02-15 20:00] VITALS: O2SAT 92
[2021-02-15 20:08] VITALS: BP 104/60
--- NOTE | 2021-02-15 20:14 | ECGEPIP ---
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
[2021-02-16] VITALS (9 sets, daily range): BP systolic 109–122; BP diastolic 68–72; O2SAT 89–94
[2021-02-16 08:26] LABS: BASO % 0.1 % (0.0-1.0); HEMATOCRIT 35.1 % (36.0-47.0); HEMOGLOBIN 11.2 g/dl (12.0-15.5); LYMPH # 0.7 10^3/uL (1.5-5.0); LYMPH % 10.6 % (24.0-44.0); MEAN CORPUSCULAR HEMOGLOBIN 29.6 pg (27.0-33.0); MEAN CORPUSCULAR HGB CONC 31.9 g/dl (32.0-36.5); MEAN CORPUSCULAR VOLUME 92.6 fl (80.0-96.0); MONO # 0.4 10^3/uL (0.0-0.8); MONO % 5.5 % (2.0-8.0); NEUTROPHILS # 5.7 10^3/uL (1.5-8.5); NEUTROPHILS % 83.1 % (36.0-66.0); PLATELET COUNT, AUTOMATED 274 10^3/uL (150-450); RED BLOOD COUNT 3.79 10^6/uL (4.00-5.40); WHITE BLOOD COUNT 6.9 10^3/uL (4.0-10.0)
[2021-02-16 08:37] LABS: INR 0.96
[2021-02-16 08:38] LABS: PARTIAL THROMBOPLASTIN TIME 31.1 SECONDS (24.2-38.5)
[2021-02-16 08:48] LABS: ALBUMIN 2.3 GM/DL (3.2-5.2); ALT/SGPT 57 U/L (12-78); BILIRUBIN,DIRECT < 0.1 MG/DL (0.0-0.2); BILIRUBIN,TOTAL 0.2 MG/DL (0.2-1.0); BLOOD UREA NITROGEN 24 MG/DL (7-18); C REACTIVE PROTEIN QUANTITATIV 3.39 MG/DL (0.00-0.30); CALCIUM LEVEL 8.2 MG/DL (8.5-10.1); CARBON DIOXIDE LEVEL 25 MEQ/L (21-32); CHLORIDE LEVEL 108 MEQ/L (98-107); CPK CREATINE PHOSPHOKINASE 64 U/L (26-192); CREATININE FOR GFR 0.63 MG/DL (0.55-1.30); FERRITIN 1357 NG/ML (8-252); GLOMERULAR FILTRATION RATE > 60.0 (>51); GLUCOSE, FASTING 109 MG/DL (70-100); LDH LACTATE DEHYDROGENASE 262 U/L (84-246); MAGNESIUM LEVEL 2.1 MG/DL (1.8-2.4); NT-PRO BNP 82 PG/ML (<125); POTASSIUM SERUM 3.7 MEQ/L (3.5-5.1); SODIUM LEVEL 138 MEQ/L (136-145); TOTAL PROTEIN 6.8 GM/DL (6.4-8.2); TROPONIN I < 0.02 NG/ML (< 0.10)
[2021-02-16] MEDS: CETIRIZINE (ZyrTEC) 10 MG TAB PO SCH (08:59)
[2021-02-16] MEDS: ENOXAPARIN 40MG/0.4ML SYRINGE (J1650 PER 10MG) SC SCH (08:59)
[2021-02-16] MEDS: dexameTHASONE 4 MG/ML 1ML VIAL (J1100 PER 1MG) IV SCH (08:59)
[2021-02-16] MEDS: MONTELUKAST 10 MG TAB PO SCH (08:59)
[2021-02-16] MEDS: LACTOBACILLUS ACIDOPHILUS CAP (BACID) PO SCH (08:59)
[2021-02-16] MEDS: guaiFENesin ER 600 MG TAB PO SCH ×2 (08:59→20:23)
[2021-02-16] MEDS: NEBIVOLOL 5 MG TAB (BYSTOLIC) PO SCH (09:00)
[2021-02-16] MEDS: DYAZIDE 37.5/25 CAP (TRIAM/HCTZ) PO SCH (09:00)
--- NOTE | 2021-02-16 10:55 | IPNPDOC ---
Text Note Date of Service The patient was seen on 02/16/21. NOTE SUBJECTIVE: Patient is seen and examined this morning at bedside. She feels some improvement this morning. She states she feel less fatigued and that her chest congestion is clearing up. Continues to have some shortness of breath on exertion, improved with rest. Occasional nonproductive cough. OBJECTIVE: VITAL SIGNS: See below GENERAL: Alert, comfortable, in no acute distress HEENT: Normocephalic, atraumatic, sclera anicteric, moist mucous membranes NECK: Supple, trachea midline, no lymphadenopathy CARDIOVASCULAR: Regular rate and rhythm, normal S1 and S2. No murmurs, rubs, or gallops RESPIRATORY: Clear to auscultation bilaterally with equal air entry bilaterally. No wheezing, rhonchi, or rales. ABDOMEN: Soft, nontender, nondistended, bowel sounds present. EXTREMITIES: No cyanosis or edema. Pulses 2+/4 in bilateral upper and lower extremities SKIN: [place], warm, dry NEUROLOGIC: Alert and oriented x3 to person, place and time. No focal deficits appreciated PSYCHIATRIC: Mood and affect appropriate ASSESSMENT/PLAN: 55 year old female with PMHx of asthma, allergic rhinitis, migraine headaches, IBS, and recently diagnosed Soliman's Palsy who presented to the ED with known COVID-19 symptoms and worsening symptoms, found to have hypoxia and bilateral infiltrates on CXR, admitted for management of COVID-19 pneumonia # Acute hypoxia 2/2 COVID-19 pneumonia - supplemental O2 to maintain saturations >90%. Requiring 4lpm via nasal cannula. - telemetry for tachycardia, improved - trend inflammatory labs q2d. trend cbc, bmp, mg, crp, and ldh daily - d-dimer not elevated. will proceed with standard DVT prophylaxis dosing. - tx with IV remdesivir x5 days and IV Decadron x10 days - mucinex, acapella, and incentive spirometer. combivent q4h prn # Asthma / allergic rhinitis - continue home zyrtec and montelukast - currently no home inhalers # HTN - continue home Dyazide and nebivolol # Migraine headaches - continue home nebivolol # Soliman's Palsy - d/c home prednisone as she will be on decadron - completed course of Valacyclovir, will also d/c # IBS - continue probiotic DVT prophylaxis: sc lovenox 40mg DISPOSITION: admitted inpatient to med/surg pending clinical improvement VS,Fishbone, I+O VS, Fishbone, I+O Laboratory Tests 02/16/21 07:48 Vital Signs Date Time Temp Pulse Resp B/P (MAP) Pulse Ox O2 Delivery O2 Flow Rate FiO2 02/16/21 09:37 89 Nasal Cannula 4.0 02/16/21 05:31 98.2 89 19 109/68 (82) I&O- Last 24 Hours up to 6 AM 02/16/21 06:00 Intake Total 1710 ml Output Total 1000 ml Balance 710 ml GME ATTESTATION GME ATTESTATION My faculty preceptor for this patient encounter was physically present during the encounter and was fully available. All aspects of the patient interview, examination, medical decision making process, and medical care plan development were reviewed and approved by the faculty preceptor. The faculty preceptor is a le and concurs with the plan as stated in the body of this note and will attest to such by his/her cosignature. ATTENDING NOTE I, Yung Daniels, have independently examined this patient and performed my own physical exam, as well as reviewed the documentation and edited where necessary. I have discussed in detail with the resident / student the findings and plan of treatment as documented by the resident / student and edited their note. I agree with their findings and treatment plan and have edited their documentation. I will continue to follow the patient during this hospital stay. MIKAL RAMIREZ D.O. February 16, 2021 10:55 YUNG DANIELS MD February 16, 2021 15:18
[2021-02-16] MEDS: REMDESIVIR 100 MG in NS 250 ML IV SCH (16:11)
[2021-02-16] MEDS: SODIUM CHLORIDE 0.9% INJ 10 ML SYR IV SCH (17:11)
[2021-02-16] MEDS: ACETAMINOPHEN TAB 650MG DOSE (2X325MG) PO PRN (17:12)
[2021-02-17] VITALS (9 sets, daily range): BP systolic 115–121; BP diastolic 71–78; O2SAT 92–95
[2021-02-17 07:45] LABS: BASO % 0.3 % (0.0-1.0); HEMATOCRIT 35.1 % (36.0-47.0); HEMOGLOBIN 11.2 g/dl (12.0-15.5); LYMPH # 0.8 10^3/uL (1.5-5.0); LYMPH % 13.1 % (24.0-44.0); MEAN CORPUSCULAR HEMOGLOBIN 29.3 pg (27.0-33.0); MEAN CORPUSCULAR HGB CONC 31.9 g/dl (32.0-36.5); MEAN CORPUSCULAR VOLUME 91.9 fl (80.0-96.0); MONO # 0.5 10^3/uL (0.0-0.8); NEUTROPHILS # 4.8 10^3/uL (1.5-8.5); NEUTROPHILS % 77.3 % (36.0-66.0); PLATELET COUNT, AUTOMATED 319 10^3/uL (150-450); RED BLOOD COUNT 3.82 10^6/uL (4.00-5.40); WHITE BLOOD COUNT 6.3 10^3/uL (4.0-10.0)
[2021-02-17 08:12] LABS: BLOOD UREA NITROGEN 23 MG/DL (7-18); C REACTIVE PROTEIN QUANTITATIV 1.35 MG/DL (0.00-0.30); CARBON DIOXIDE LEVEL 26 MEQ/L (21-32); CHLORIDE LEVEL 108 MEQ/L (98-107); CREATININE FOR GFR 0.59 MG/DL (0.55-1.30); GLOMERULAR FILTRATION RATE > 60.0 (>51); GLUCOSE, FASTING 104 MG/DL (70-100); LDH LACTATE DEHYDROGENASE 375 U/L (84-246); POTASSIUM SERUM 3.8 MEQ/L (3.5-5.1); SODIUM LEVEL 139 MEQ/L (136-145)
[2021-02-17] MEDS: ENOXAPARIN 40MG/0.4ML SYRINGE (J1650 PER 10MG) SC SCH (08:38)
[2021-02-17] MEDS: CETIRIZINE (ZyrTEC) 10 MG TAB PO SCH (08:39)
[2021-02-17] MEDS: LACTOBACILLUS ACIDOPHILUS CAP (BACID) PO SCH (08:39)
[2021-02-17] MEDS: MONTELUKAST 10 MG TAB PO SCH (08:39)
[2021-02-17] MEDS: dexameTHASONE 4 MG/ML 1ML VIAL (J1100 PER 1MG) IV SCH (08:39)
[2021-02-17] MEDS: guaiFENesin ER 600 MG TAB PO SCH ×2 (08:39→20:46)
[2021-02-17] MEDS: NEBIVOLOL 5 MG TAB (BYSTOLIC) PO SCH (08:42)
[2021-02-17] MEDS: DYAZIDE 37.5/25 CAP (TRIAM/HCTZ) PO SCH (08:43)
--- NOTE | 2021-02-17 10:05 | IPNPDOC ---
Text Note Date of Service The patient was seen on 02/17/21. NOTE Subjective: Patient is a 55-year-old female with a PMHx of Asthma, Allergic rhinitis, Migraine headaches, IBS, Recent Soliman's Palsy and Recent Diagnosis of COVID19 on 02/11, who presented to [facility] on 02/14 with complaints of worsening SOB. Patient was admitted to the hospital service for COVID19 pneumonia. Patient was seen and examined at the bedside. Patient reports that her breathing is doing slightly better. She is still on 4 L of nasal cannula oxygen. Reports that she has been having a cough and has been able to clear her secretions better this morning. Denies any nausea, vomiting, abdominal pain or diarrhea. Denies any urinary discomfort. Patient did attempt to lie on her stomach overnight; however, was not able to tolerate this. Objective: Vitals (See below) General: Lying in bed, no acute distress, comfortable, AAOx3 HEENT: NC, AT CVS: +S1S2 Lungs: Fair air entry b/l, -w/r/r Abdomen: Soft, ND, NT Extremities: - Edema, - Calf tenderness Imaging: CXR 02/14: Scattered opacities and technique as described above. PA and lateral views of the chest with increased inspiration should be considered. Assessment and plan: Acute hypoxic respiratory failure - likely 2/2 COVID-19 pneumonia - Currently patient reports that her breathing is doing better - Currently still reports a productive cough - Currently on 4 L of nasal cannula. We'll attempt to titrate down - Inflammatory markers are improving - Imaging noted above - c/w Remdesivir and Dexamethasone (Day #4) - c/w Mucinex / Acapella / Incentive spirometer Asthma / Allergic rhinitis - No evidence of exacerbation - Continue with inhaled therapy as ordered HTN - c/w Nebivolol and Triamterene / HCTZ with hold parameters Migraine headaches - c/w Nebivolol History of Soliman's Palsy - s/p Prednisone; currently on Dexamethasone - s/p Valacyclovir IBS - c/w probiotic DVT prophylaxis - c/w Lovenox 40 SQ Disposition: - Awaiting clinical improvement - Anticipate discharge home within the next 24-48 hours VS,Fishbone, I+O VS, Fishbone, I+O Laboratory Tests 02/17/21 07:10 Vital Signs Date Time Temp Pulse Resp B/P (MAP) Pulse Ox O2 Delivery O2 Flow Rate FiO2 02/17/21 08:42 70 109/72 02/17/21 05:56 95 Nasal Cannula 4.0 02/17/21 05:40 98.0 18 I&O- Last 24 Hours up to 6 AM 02/17/21 06:00 Intake Total 610 ml Output Total 400 ml Balance 210 ml YORDAN SALINAS MD February 17, 2021 10:05
[2021-02-17] MEDS: REMDESIVIR 100 MG in NS 250 ML IV SCH (16:54)
[2021-02-17] MEDS: SODIUM CHLORIDE 0.9% INJ 10 ML SYR IV SCH (16:55)
[2021-02-18] VITALS: O2SAT 93
[2021-02-18 04:00] VITALS: O2SAT 92
[2021-02-18 04:30] VITALS: BP 128/79
[2021-02-18] MEDS: dexameTHASONE 4 MG/ML 1ML VIAL (J1100 PER 1MG) IV SCH (08:29)
[2021-02-18] MEDS: ENOXAPARIN 40MG/0.4ML SYRINGE (J1650 PER 10MG) SC SCH (08:29)
[2021-02-18] MEDS: MONTELUKAST 10 MG TAB PO SCH (08:30)
[2021-02-18] MEDS: LACTOBACILLUS ACIDOPHILUS CAP (BACID) PO SCH (08:30)
[2021-02-18] MEDS: guaiFENesin ER 600 MG TAB PO SCH ×2 (08:30→21:50)
[2021-02-18] MEDS: CETIRIZINE (ZyrTEC) 10 MG TAB PO SCH (08:30)
[2021-02-18 08:33] LABS: HEMATOCRIT 35.5 % (36.0-47.0); HEMOGLOBIN 11.3 g/dl (12.0-15.5); MEAN CORPUSCULAR HEMOGLOBIN 29.1 pg (27.0-33.0); MEAN CORPUSCULAR HGB CONC 31.8 g/dl (32.0-36.5); MEAN CORPUSCULAR VOLUME 91.5 fl (80.0-96.0); PLATELET COUNT, AUTOMATED 352 10^3/uL (150-450); RED BLOOD COUNT 3.88 10^6/uL (4.00-5.40); WHITE BLOOD COUNT 5.8 10^3/uL (4.0-10.0)
[2021-02-18] MEDS: NEBIVOLOL 5 MG TAB (BYSTOLIC) PO SCH (08:33)
[2021-02-18] MEDS: DYAZIDE 37.5/25 CAP (TRIAM/HCTZ) PO SCH (08:33)
[2021-02-18 09:07] LABS: ALBUMIN 2.3 GM/DL (3.2-5.2); ALT/SGPT 73 U/L (12-78); BILIRUBIN,DIRECT < 0.1 MG/DL (0.0-0.2); BILIRUBIN,TOTAL 0.3 MG/DL (0.2-1.0); BLOOD UREA NITROGEN 30 MG/DL (7-18); C REACTIVE PROTEIN QUANTITATIV 0.89 MG/DL (0.00-0.30); CALCIUM LEVEL 8.3 MG/DL (8.5-10.1); CARBON DIOXIDE LEVEL 25 MEQ/L (21-32); CHLORIDE LEVEL 108 MEQ/L (98-107); CPK CREATINE PHOSPHOKINASE 44 U/L (26-192); CREATININE FOR GFR 0.54 MG/DL (0.55-1.30); FERRITIN 828 NG/ML (8-252); GLOMERULAR FILTRATION RATE > 60.0 (>51); GLUCOSE, FASTING 88 MG/DL (70-100); LDH LACTATE DEHYDROGENASE 255 U/L (84-246); MAGNESIUM LEVEL 2.1 MG/DL (1.8-2.4); NT-PRO BNP 331 PG/ML (<125); POTASSIUM SERUM 3.9 MEQ/L (3.5-5.1); SODIUM LEVEL 140 MEQ/L (136-145); TOTAL PROTEIN 5.8 GM/DL (6.4-8.2); TROPONIN I < 0.02 NG/ML (< 0.10)
[2021-02-18 09:12] LABS: ATYPICAL LYMPH 3 % (0-5); LYMPHOCYTES 15 % (16-44); MONOCYTES 7 % (0-5); NEUTROPHILS 72 % (28-66)
[2021-02-18 09:15] LABS: PLATELET ESTIMATE NORMAL (NORMAL)
[2021-02-18 09:16] LABS: ANISOCYTOSIS 1+; TEAR DROP CELLS 1+
[2021-02-18 09:37] LABS: INR 0.99; PROTHROMBIN TIME 13.3 SECONDS (12.5-14.3)
--- NOTE | 2021-02-18 09:37 | IPNPDOC ---
Text Note Date of Service The patient was seen on 02/18/21. NOTE Subjective: Patient is a 55-year-old female with a PMHx of Asthma, Allergic rhinitis, Migraine headaches, IBS, Recent Soliman's Palsy and Recent Diagnosis of COVID19 on 02/11, who presented to [facility] on 02/14 with complaints of worsening SOB. Patient was admitted to the hospital service for COVID19 pneumonia. Patient was seen and examined at the bedside. Patient reports that her breathing is doing better this morning. Denies any nausea, vomiting, or diarrhea. Denies any urinary discomfort. Patient was working with physical therapy this morning. Objective: Vitals (See below) General: Patient is sitting up in bed, appears comfortable, not in any acute distress, oriented to person, place and time HEENT: NC, AT CVS: +S1S2 Lungs: Fair air entry b/l, auscultation is without wheezing / rhonchi / rales Abdomen: Soft, nondistended, nontender Extremities: No evidence of edema, - Calf tenderness Imaging: CXR 02/14: Scattered opacities and technique as described above. PA and lateral views of the chest with increased inspiration should be considered. Assessment and plan: Acute hypoxic respiratory failure - likely 2/2 COVID-19 pneumonia - Continues reports improvement of her breathing still nonproductive cough - Currently on nasal cannula oxygen requirement has improved - Again. Inflammatory markers were to be improving - Imaging noted above - c/w Remdesivir and Dexamethasone (Day #5) - c/w Mucinex / Acapella / Incentive spirometer - Will have home safety evaluation this morning Asthma / Allergic rhinitis - No evidence of exacerbation - Continue with inhaled therapy as ordered HTN - c/w Nebivolol and Triamterene / HCTZ with hold parameters Migraine headaches - c/w Nebivolol History of Soliman's Palsy - s/p Prednisone; currently on Dexamethasone - s/p Valacyclovir IBS - c/w probiotic DVT prophylaxis - c/w Lovenox 40 SQ Disposition: - Awaiting clinical improvement - Anticipate discharge home tomorrow VS,Ulyssesbone, I+O VS, Ulyssesbone, I+O Laboratory Tests 02/18/21 07:36 Vital Signs Date Time Temp Pulse Resp B/P (MAP) Pulse Ox O2 Delivery O2 Flow Rate FiO2 02/18/21 08:33 74 110/69 02/18/21 04:30 97.8 21 90 Nasal Cannula 2.0 I&O- Last 24 Hours up to 6 AM 02/18/21 06:00 Intake Total 1750 ml Output Total 1250 ml Balance 500 ml YORDAN SALINAS MD February 18, 2021 09:37
[2021-02-18 09:38] LABS: PARTIAL THROMBOPLASTIN TIME 28.9 SECONDS (24.2-38.5)
[2021-02-18 14:00] VITALS: BP 126/64
[2021-02-18] MEDS: SODIUM CHLORIDE 0.9% INJ 10 ML SYR IV SCH (16:32)
[2021-02-18] MEDS: REMDESIVIR 100 MG in NS 250 ML IV SCH (16:32)
[2021-02-18] MEDS: ACETAMINOPHEN TAB 650MG DOSE (2X325MG) PO PRN (16:38)
[2021-02-18 20:00] VITALS: BP 112/61
[2021-02-18 22:00] VITALS: BP 112/61
[2021-02-19 05:47] VITALS: BP 121/77
[2021-02-19 07:48] LABS: HEMATOCRIT 37.1 % (36.0-47.0); HEMOGLOBIN 12.2 g/dl (12.0-15.5); MEAN CORPUSCULAR HEMOGLOBIN 29.6 pg (27.0-33.0); MEAN CORPUSCULAR HGB CONC 32.9 g/dl (32.0-36.5); PLATELET COUNT, AUTOMATED 430 10^3/uL (150-450); RED BLOOD COUNT 4.12 10^6/uL (4.00-5.40)
[2021-02-19 08:17] LABS: LYMPHOCYTES 16 % (16-44); METAMYELOCYTES 2 % (0-0); MONOCYTES 9 % (0-5); NEUTROPHILS 73 % (28-66); PLATELET ESTIMATE NORMAL (NORMAL)
[2021-02-19 08:42] LABS: BLOOD UREA NITROGEN 26 MG/DL (7-18); C REACTIVE PROTEIN QUANTITATIV 0.53 MG/DL (0.00-0.30); CALCIUM LEVEL 9.2 MG/DL (8.5-10.1); CARBON DIOXIDE LEVEL 23 MEQ/L (21-32); CHLORIDE LEVEL 107 MEQ/L (98-107); CREATININE FOR GFR 0.59 MG/DL (0.55-1.30); GLOMERULAR FILTRATION RATE > 60.0 (>51); GLUCOSE, FASTING 91 MG/DL (70-100); LDH LACTATE DEHYDROGENASE 235 U/L (84-246); MAGNESIUM LEVEL 1.9 MG/DL (1.8-2.4); POTASSIUM SERUM 3.7 MEQ/L (3.5-5.1); SODIUM LEVEL 140 MEQ/L (136-145)
[2021-02-19 09:00] VITALS: O2SAT 93
[2021-02-19 09:15] VITALS: BP 121/77
[2021-02-19] MEDS: guaiFENesin ER 600 MG TAB PO SCH (09:15)
[2021-02-19] MEDS: LACTOBACILLUS ACIDOPHILUS CAP (BACID) PO SCH (09:15)
[2021-02-19] MEDS: NEBIVOLOL 5 MG TAB (BYSTOLIC) PO SCH (09:15)
[2021-02-19] MEDS: DYAZIDE 37.5/25 CAP (TRIAM/HCTZ) PO SCH (09:15)
[2021-02-19] MEDS: MONTELUKAST 10 MG TAB PO SCH (09:16)
[2021-02-19] MEDS: ENOXAPARIN 40MG/0.4ML SYRINGE (J1650 PER 10MG) SC SCH (09:16)
[2021-02-19] MEDS: dexameTHASONE 4 MG/ML 1ML VIAL (J1100 PER 1MG) IV SCH (09:16)
[2021-02-19] MEDS: CETIRIZINE (ZyrTEC) 10 MG TAB PO SCH (09:16)
[2021-02-19] MEDS ORDERED: PRED10TA2 PO (10:24)
[2021-02-19] MEDS ORDERED: PROAAER10 INH (12:29)
--- NOTE | 2021-02-19 12:55 | DSES ---
DISCHARGE SUMMARY DATE OF ADMISSION: 02/14/2021 DATE OF DISCHARGE: 02/19/2021 PRIMARY DISCHARGE DIAGNOSES: 1. Coronavirus pneumonia. 2. Acute hypoxic respiratory failure requiring 4 liters nasal cannula supplemental oxygen. 3. Asthma. 4. Allergic rhinitis. 5. Hypertension. 6. History of migraine headaches. 7. Recent Soliman's palsy on prednisone taper and completed course of valacyclovir as an outpatient. 8. Irritable bowel syndrome. DISCHARGE MEDICATIONS: 1. Prednisone taper. 2. Cetirizine 10 daily. 3. Ibuprofen 600 every 6 as needed for pain or fever. 4. Probiotic one capsule daily. 5. Singulair 10 daily. 6. Nebivolol 10 mg daily. 7. Zofran t.i.d. as needed for nausea. 8. Triamterene and hydrochlorothiazide one tablet daily. 9. Valacyclovir one gram p.o. t.i.d. 10. Albuterol two puffs q. 4 as needed for wheezing and shortness of breath. DISCHARGE INSTRUCTIONS: Follow-up with primary care physician within five days of hospital discharge. Return to the emergency room if oxygen saturation is less than 88% on room air with ambulation or rest. Call your doctor with temperature of 100.4 or higher, worsening cough productive of sputum, change in character to green or brown. HOSPITAL COURSE: This is a 55-year-old female who presented to the emergency room with shortness of breath and fever of 104 at home found to have Coronavirus pneumonia on chest x-ray, treated with IV remdesivir, Decadron 6 mg IV daily, Combivent one puff q. 4 as needed, and resumed on all of her home medications. The patient had an asthma exacerbation on arrival and required 4 liters of oxygen due to acute hypoxic respiratory failure with oxygen saturation of 87% on room air on arrival. The patient improved significantly and was 92% on room air with ambulation on discharge. She is to complete a full course of prednisone tapered dose at home. DISCHARGE PHYSICAL EXAMINATION: VITAL SIGNS: Temperature 97.6, pulse 68, respiratory rate 17, blood pressure 121/77, 93% on room air. GENERAL: No conversational dyspnea. No use of respiratory accessory muscles. HEENT: Moist mucous membranes. NECK: No JVD or thyromegaly. LUNGS: Diminished, but clear to auscultation without wheezing or rales. HEART: S1, S2. Sinus rhythm. ABDOMEN: Obese, soft, nontender, and nondistended. EXTREMITIES: No pitting edema. DISCHARGE LABORATORY DATA: White count 8, hemoglobin 12, hematocrit 37, platelet count 430,000. Sodium 140, potassium 3.7, chloride 107, bicarb 23, BUN 26, creatinine 0.59, glucose of 91. IMAGING DATA: Chest x-ray 02/14/2021, scattered opacities. PA and lateral views with increased inspiration should be considered. Time spent on discharge 30 minutes. MTDD
== END 2021-02-19 16:40 | disposition home or self-care (01) | DRG 137 ==
LOC: M ED 09:08 → M ED INP 12:00 → ENRESERV 12:35 → M 4MAIN 15:41
PROVIDERS: ADMIT Internal Medicine; ATTEND General Practice
DX: U07.1 COVID-19 (principal); J96.01 Acute respiratory failure with hypoxia; J12.82 Pneumonia due to coronavirus disease 2019; J45.901 Unspecified asthma with (acute) exacerbation; K58.9 Irritable bowel syndrome, unspecified; G43.909 Migraine, unspecified, not intractable, without status migrainosus; I10 Essential (primary) hypertension; G51.0 Bell's palsy; Z79.52 Long term (current) use of systemic steroids; Z79.899 Other long term (current) drug therapy; Z88.5 Allergy status to narcotic agent

== ENCOUNTER → 2021-07-05 | Outpatient (CLI) | payer BC ==
[~2021-07-05] MED LIST changes: +IBUP1TAB6 PO; +ONDA-83 PO; +PRED10TA2 PO; +PROAAER10 INH; +TRIA37.5 PO
[2021-07-05 09:08] LABS: HEMATOCRIT 41.2 % (36.0-47.0); MEAN CORPUSCULAR HEMOGLOBIN 28.6 pg (27.0-33.0); MEAN CORPUSCULAR HGB CONC 31.6 g/dl (32.0-36.5); MEAN CORPUSCULAR VOLUME 90.5 fl (80.0-96.0); PLATELET COUNT, AUTOMATED 307 10^3/uL (150-450); RED BLOOD COUNT 4.55 10^6/uL (4.00-5.40); WHITE BLOOD COUNT 6.1 10^3/uL (4.0-10.0)
[2021-07-05 10:09] LABS: ERYTHROCYTE SEDIMENTATION RATE 45 mm/hr (0-30)
[2021-07-05 12:26] LABS: ALBUMIN 3.4 GM/DL (3.2-5.2); ALT/SGPT 46 U/L (12-78); BILIRUBIN,TOTAL 0.2 MG/DL (0.2-1.0); BLOOD UREA NITROGEN 19 MG/DL (7-18); CALCIUM LEVEL 9.6 MG/DL (8.5-10.1); CARBON DIOXIDE LEVEL 27 MEQ/L (21-32); CHLORIDE LEVEL 111 MEQ/L (98-107); CREATININE FOR GFR 0.89 MG/DL (0.55-1.30); FREE T4 1.08 NG/DL (0.76-1.46); GLOMERULAR FILTRATION RATE > 60.0 (>51); GLUCOSE, FASTING 90 MG/DL (70-100); IRON (FE) 62 UG/DL (50-170); PERCENT SATURATION 18.7 % (13.2-45.0); RHEUMATOID FACTOR QUANT < 10.0 IU/ML (<15.0); SODIUM LEVEL 143 MEQ/L (136-145); TOTAL 25(OH) VITAMIN D 32.2 NG/ML (30.0-100.0); TOTAL IRON BINDING CAPACITY 332 UG/DL (250-450); TOTAL PROTEIN 7.1 GM/DL (6.4-8.2); TOTAL T3 98.7 NG/DL (60.0-181.0); VITAMIN B12 LEVEL > 2000 PG/ML (247-911)
[2021-07-06 19:07] LABS: ANTINUCLEAR ANTIBODIES DIRECT Negative (Negative)
== END ==
LOC: M LAB 07:39
PROVIDERS: ATTEND Family Medicine
DX: E03.9 Hypothyroidism, unspecified (principal); I10 Essential (primary) hypertension; R53.83 Other fatigue

== ENCOUNTER → 2021-12-13 | Outpatient (REF) | payer BC ==
[2021-12-13 12:34] LABS: BASO % 0.5 % (0.0-1.0); EOS # 0.2 10^3/uL (0.0-0.5); EOS % 2.4 % (0.0-3.0); HEMATOCRIT 40.3 % (36.0-47.0); HEMOGLOBIN 12.7 g/dl (12.0-15.5); LYMPH # 1.7 10^3/uL (1.5-5.0); LYMPH % 27.5 % (24.0-44.0); MEAN CORPUSCULAR HEMOGLOBIN 27.9 pg (27.0-33.0); MEAN CORPUSCULAR HGB CONC 31.5 g/dl (32.0-36.5); MEAN CORPUSCULAR VOLUME 88.4 fl (80.0-96.0); MONO # 0.5 10^3/uL (0.0-0.8); MONO % 7.8 % (2.0-8.0); NEUTROPHILS # 3.8 10^3/uL (1.5-8.5); NEUTROPHILS % 61.1 % (36.0-66.0); PLATELET COUNT, AUTOMATED 304 10^3/uL (150-450); RED BLOOD COUNT 4.56 10^6/uL (4.00-5.40); WHITE BLOOD COUNT 6.1 10^3/uL (4.0-10.0)
[2021-12-13 13:05] LABS: ALBUMIN 3.7 GM/DL (3.2-5.2); ALT/SGPT 69 U/L (12-78); BILIRUBIN,TOTAL 0.3 MG/DL (0.2-1.0); BLOOD UREA NITROGEN 18 MG/DL (7-18); C REACTIVE PROTEIN QUANTITATIV 1.56 MG/DL (0.00-0.30); CALCIUM LEVEL 9.8 MG/DL (8.5-10.1); CARBON DIOXIDE LEVEL 28 MEQ/L (21-32); CHLORIDE LEVEL 109 MEQ/L (98-107); CREATININE FOR GFR 0.78 MG/DL (0.55-1.30); ERYTHROCYTE SEDIMENTATION RATE 54 mm/hr (0-30); GLOMERULAR FILTRATION RATE > 60.0 (>51); GLUCOSE, FASTING 86 MG/DL (70-100); SODIUM LEVEL 140 MEQ/L (136-145); TOTAL PROTEIN 7.5 GM/DL (6.4-8.2)
== END ==
LOC: M SFHCRHEU 09:06
PROVIDERS: ATTEND Internal Medicine Rheumatology
DX: M35.3 Polymyalgia rheumatica (principal)

== ENCOUNTER → 2022-01-10 | Outpatient (CLI) | payer BC | LOC: M LAB 14:24 → M RAD 14:24 | PROVIDERS: ATTEND Internal Medicine Rheumatology | DX: M35.3 Polymyalgia rheumatica (principal) ==

== ENCOUNTER → 2022-02-18 | Outpatient (CLI) | payer BC ==
[2022-02-18 10:28] LABS: BASO # 0.1 10^3/uL (0.0-0.2); BASO % 0.8 % (0.0-1.0); EOS # 0.3 10^3/uL (0.0-0.5); EOS % 4.4 % (0.0-3.0); HEMATOCRIT 38.6 % (36.0-47.0); HEMOGLOBIN 12.2 g/dl (12.0-15.5); LYMPH # 2.1 10^3/uL (1.5-5.0); LYMPH % 32.3 % (24.0-44.0); MEAN CORPUSCULAR HEMOGLOBIN 28.2 pg (27.0-33.0); MEAN CORPUSCULAR HGB CONC 31.6 g/dl (32.0-36.5); MEAN CORPUSCULAR VOLUME 89.1 fl (80.0-96.0); MONO # 0.6 10^3/uL (0.0-0.8); MONO % 9.6 % (2.0-8.0); NEUTROPHILS # 3.3 10^3/uL (1.5-8.5); PLATELET COUNT, AUTOMATED 326 10^3/uL (150-450); RED BLOOD COUNT 4.33 10^6/uL (4.00-5.40); WHITE BLOOD COUNT 6.4 10^3/uL (4.0-10.0)
[2022-02-18 10:29] LABS: APPEARANCE, URINE CLEAR (CLEAR); BACTERIA, URINE AUTO 1+ (NEGATIVE); BILIRUBIN, URINE AUTO NEGATIVE (NEGATIVE); BLOOD, URINE BLOOD NEGATIVE (NEGATIVE); COLOR, URINE YELLOW (YELLOW); GLUCOSE, URINE (UA) AUTO NEGATIVE (NEGATIVE); KETONE, URINE AUTO NEGATIVE (NEGATIVE); LEUKOCYTE ESTERASE, URINE AUTO 1+ (NEGATIVE); MUCUS, URINE SMALL (NEGATIVE); NITRITE, URINE AUTO NEGATIVE (NEGATIVE); PROTEIN, URINE AUTO NEGATIVE (NEGATIVE); RBC, URINE AUTO 1 /HPF (0-3); SPECIFIC GRAVITY URINE AUTO 1.023 (1.002-1.035); SQUAMOUS EPITHELIAL CELL UR AU 3 /HPF (0-6); UROBILINOGEN, URINE AUTO 0.2 mg/dL (0.0-2.0); WBC, URINE AUTO 4 /HPF (0-3)
[2022-02-18 10:56] LABS: ALBUMIN 3.7 GM/DL (3.2-5.2); ALT/SGPT 39 U/L (12-78); BILIRUBIN,TOTAL 0.4 MG/DL (0.2-1.0); BLOOD UREA NITROGEN 25 MG/DL (7-18); C REACTIVE PROTEIN QUANTITATIV 0.41 MG/DL (0.00-0.30); CALCIUM LEVEL 10.3 MG/DL (8.5-10.1); CARBON DIOXIDE LEVEL 28 MEQ/L (21-32); CHLORIDE LEVEL 105 MEQ/L (98-107); COMPLEMENT C3 132 MG/DL (90-180); COMPLEMENT C4 30 MG/DL (10-40); CREATININE FOR GFR 0.81 MG/DL (0.55-1.30); GLOMERULAR FILTRATION RATE > 60.0 (>51); GLUCOSE, FASTING 93 MG/DL (70-100); POTASSIUM SERUM 4.2 MEQ/L (3.5-5.1); SODIUM LEVEL 141 MEQ/L (136-145); TOTAL PROTEIN 7.8 GM/DL (6.4-8.2)
[2022-02-18 10:58] LABS: TOTAL PROTEIN,RANDOM URINE 19.7 MG/DL (0.0-12.0)
[2022-02-18 11:04] LABS: ERYTHROCYTE SEDIMENTATION RATE 49 mm/hr (0-30)
== END ==
LOC: M PLAIMG 07:20
PROVIDERS: ATTEND Internal Medicine Rheumatology
DX: M51.27 Other intervertebral disc displacement, lumbosacral region (principal); M46.1 Sacroiliitis, not elsewhere classified; R76.8 Other specified abnormal immunological findings in serum; M35.3 Polymyalgia rheumatica; I73.00 Raynaud's syndrome without gangrene; H04.123 Dry eye syndrome of bilateral lacrimal glands; R21 Rash and other nonspecific skin eruption

== ENCOUNTER → 2022-06-19 | Outpatient (REF) | payer BC | LOC: M SFHCDERM 14:13 | PROVIDERS: ATTEND Nurse Practitioner Family | DX: L91.0 Hypertrophic scar (principal) ==

== ENCOUNTER → 2022-11-24 | Outpatient (CLI) | payer BC ==
[2022-11-24 08:12] LABS: APPEARANCE, URINE CLEAR (CLEAR); BACTERIA, URINE AUTO NEGATIVE (NEGATIVE); BILIRUBIN, URINE AUTO NEGATIVE (NEGATIVE); BLOOD, URINE BLOOD NEGATIVE (NEGATIVE); COLOR, URINE YELLOW (YELLOW); GLUCOSE, URINE (UA) AUTO NEGATIVE (NEGATIVE); KETONE, URINE AUTO NEGATIVE (NEGATIVE); LEUKOCYTE ESTERASE, URINE AUTO 1+ (NEGATIVE); MUCUS, URINE SMALL (NEGATIVE); NITRITE, URINE AUTO NEGATIVE (NEGATIVE); PROTEIN, URINE AUTO NEGATIVE (NEGATIVE); RBC, URINE AUTO 2 /HPF (0-3); SPECIFIC GRAVITY URINE AUTO 1.027 (1.002-1.035); SQUAMOUS EPITHELIAL CELL UR AU 2 /HPF (0-6); UROBILINOGEN, URINE AUTO 0.2 mg/dL (0.0-2.0); WBC, URINE AUTO 4 /HPF (0-3)
[2022-11-24 08:49] LABS: TOTAL PROTEIN,RANDOM URINE 32.3 MG/DL (0.0-14.0)
[2022-11-24 08:53] LABS: CREATININE,RANDOM URINE 163.7 MG/DL
[2022-11-24 10:35] LABS: BASO # 0.1 10^3/uL (0.0-0.2); BASO % 0.9 % (0.0-1.0); EOS # 0.3 10^3/uL (0.0-0.5); EOS % 4.7 % (0.0-3.0); HEMATOCRIT 42.6 % (36.0-47.0); HEMOGLOBIN 13.2 g/dl (12.0-15.5); LYMPH # 1.9 10^3/uL (1.5-5.0); LYMPH % 36.1 % (24.0-44.0); MEAN CORPUSCULAR HEMOGLOBIN 28.1 pg (27.0-33.0); MEAN CORPUSCULAR VOLUME 90.8 fl (80.0-96.0); MONO # 0.4 10^3/uL (0.0-0.8); MONO % 7.9 % (2.0-8.0); NEUTROPHILS # 2.7 10^3/uL (1.5-8.5); PLATELET COUNT, AUTOMATED 275 10^3/uL (150-450); RED BLOOD COUNT 4.69 10^6/uL (4.00-5.40); WHITE BLOOD COUNT 5.3 10^3/uL (4.0-10.0)
[2022-11-24 11:18] LABS: COMPLEMENT C3 153.8 MG/DL (90.0-170.0); COMPLEMENT C4 36.6 MG/DL (12-36); ERYTHROCYTE SEDIMENTATION RATE 49 mm/hr (0-30)
[2022-11-24 11:30] LABS: ALBUMIN 3.5 G/DL (3.2-5.2); ALKALINE PHOSPHATASE 74 U/L (46-116); ALT/SGPT 45 U/L (7.0-40); AST/SGOT 50 U/L (<34); BILIRUBIN,TOTAL 0.3 MG/DL (0.3-1.2); BLOOD UREA NITROGEN 28 MG/DL (9-23); CALCIUM LEVEL 8.8 MG/DL (8.5-10.1); CARBON DIOXIDE LEVEL 26 MMOL/L (20-31); CHLORIDE LEVEL 104 MMOL/L (98-107); CREATININE FOR GFR 0.76 MG/DL (0.55-1.30); GLOMERULAR FILTRATION RATE > 60.0 (>51); GLUCOSE, FASTING 96 MG/DL (60-100); POTASSIUM SERUM 4.6 MMOL/L (3.5-5.1); SODIUM LEVEL 139 MMOL/L (136-145); TOTAL PROTEIN 7.3 G/DL (5.7-8.2)
== END ==
LOC: M LAB 07:11
PROVIDERS: ATTEND Internal Medicine Rheumatology
DX: R76.8 Other specified abnormal immunological findings in serum (principal); M35.3 Polymyalgia rheumatica; I73.00 Raynaud's syndrome without gangrene; H04.123 Dry eye syndrome of bilateral lacrimal glands; R21 Rash and other nonspecific skin eruption; M46.1 Sacroiliitis, not elsewhere classified

== ENCOUNTER → 2023-04-23 | Outpatient (CLI) | payer BC ==
[~2023-04-23] MED LIST changes: +MONT-5 PO; -SING10TA32 PO
[2023-04-23 08:01] LABS: MEAN CORPUSCULAR HEMOGLOBIN 28.3 pg (27.0-33.0); MEAN CORPUSCULAR HGB CONC 31.7 g/dl (32.0-36.5); MEAN CORPUSCULAR VOLUME 89.1 fl (80.0-96.0); PLATELET COUNT, AUTOMATED 305 10^3/uL (150-450); WHITE BLOOD COUNT 5.8 10^3/uL (4.0-10.0)
[2023-04-23 08:30] LABS: ALBUMIN 3.7 G/DL (3.2-5.2); ALKALINE PHOSPHATASE 76 U/L (46-116); ALT/SGPT 39 U/L (7.0-40); AST/SGOT 23 U/L (<34); BILIRUBIN,TOTAL 0.5 MG/DL (0.3-1.2); BLOOD UREA NITROGEN 22 MG/DL (9-23); CALCIUM LEVEL 9.4 MG/DL (8.5-10.1); CARBON DIOXIDE LEVEL 26 MMOL/L (20-31); CHLORIDE LEVEL 105 MMOL/L (98-107); CHOLESTEROL LEVEL 180 MG/DL (<200); CHOLESTEROL RISK RATIO 4.13 (<5); CREATININE FOR GFR 0.84 MG/DL (0.55-1.30); GLOMERULAR FILTRATION RATE > 60.0 (>51); GLUCOSE, FASTING 103 MG/DL (60-100); HDL CHOLESTEROL 43.5 MG/DL (>40); LDL CHOLESTEROL 84.5 MG/DL (<100); NON-HDL-C 136.5 MG/DL; POTASSIUM SERUM 3.8 MMOL/L (3.5-5.1); SODIUM LEVEL 141 MMOL/L (136-145); TOTAL PROTEIN 7.3 G/DL (5.7-8.2); TRIGLYCERIDES LEVEL 260 MG/DL (<150)
[2023-04-23 08:32] LABS: THYROID STIMULATING HORMONE 3.047 uIU/ML (0.55-4.78); TOTAL 25(OH) VITAMIN D 40.4 NG/ML (20.0-100.0)
[2023-04-23 08:53] LABS: HEMOGLOBIN A1c 5.9 % (4.0-6.0)
== END ==
LOC: M LAB 07:40
PROVIDERS: ATTEND Family Medicine
DX: D64.9 Anemia, unspecified (principal); R53.83 Other fatigue; E03.9 Hypothyroidism, unspecified

== ENCOUNTER → 2024-02-08 | Outpatient (CLI) | payer BC ==
[2024-02-08 09:05] LABS: AMORPHOUS SEDIMENT SMALL (NEGATIVE); APPEARANCE, URINE HAZY (CLEAR); BACTERIA, URINE AUTO 1+ (NEGATIVE); BILIRUBIN, URINE AUTO NEGATIVE (NEGATIVE); BLOOD, URINE BLOOD NEGATIVE (NEGATIVE); COLOR, URINE YELLOW (YELLOW); GLUCOSE, URINE (UA) AUTO NEGATIVE (NEGATIVE); KETONE, URINE AUTO NEGATIVE (NEGATIVE); LEUKOCYTE ESTERASE, URINE AUTO NEGATIVE (NEGATIVE); MUCUS, URINE LARGE (NEGATIVE); NITRITE, URINE AUTO NEGATIVE (NEGATIVE); PROTEIN, URINE AUTO 1+ mg/dL (NEGATIVE); RBC, URINE AUTO 1 /HPF (0-3); SPECIFIC GRAVITY URINE AUTO 1.029 (1.002-1.035); SQUAMOUS EPITHELIAL CELL UR AU 3 /HPF (0-6); UROBILINOGEN, URINE AUTO 0.2 mg/dL (0.0-2.0); WBC, URINE AUTO 3 /HPF (0-3)
[2024-02-08 09:13] LABS: BASO # 0.1 10^3/uL (0.0-0.2); BASO % 0.8 % (0.0-1.0); EOS # 0.2 10^3/uL (0.0-0.5); EOS % 4.1 % (0.0-3.0); HEMATOCRIT 36.8 % (36.0-47.0); HEMOGLOBIN 11.7 g/dl (12.0-15.5); LYMPH # 1.8 10^3/uL (1.5-5.0); LYMPH % 30.1 % (24.0-44.0); MEAN CORPUSCULAR HEMOGLOBIN 28.7 pg (27.0-33.0); MEAN CORPUSCULAR HGB CONC 31.8 g/dl (32.0-36.5); MEAN CORPUSCULAR VOLUME 90.2 fl (80.0-96.0); MONO # 0.5 10^3/uL (0.0-0.8); MONO % 8.1 % (2.0-8.0); NEUTROPHILS # 3.3 10^3/uL (1.5-8.5); NEUTROPHILS % 56.4 % (36.0-66.0); PLATELET COUNT, AUTOMATED 281 10^3/uL (150-450); RED BLOOD COUNT 4.08 10^6/uL (4.00-5.40); WHITE BLOOD COUNT 5.9 10^3/uL (4.0-10.0)
[2024-02-08 09:23] LABS: ERYTHROCYTE SEDIMENTATION RATE 46 mm/hr (0-30)
[2024-02-08 09:27] LABS: TOTAL PROTEIN,RANDOM URINE 35.4 MG/DL (0.0-14.0)
[2024-02-08 09:31] LABS: C REACTIVE PROTEIN QUANTITATIV < 0.40 MG/DL (<1.0)
[2024-02-08 09:33] LABS: ALBUMIN 3.2 G/DL (3.2-5.2); ALKALINE PHOSPHATASE 71 U/L (46-116); ALT/SGPT 31 U/L (7.0-40); AST/SGOT 22 U/L (<34); BILIRUBIN,TOTAL 0.4 MG/DL (0.3-1.2); BLOOD UREA NITROGEN 21 MG/DL (9-23); CALCIUM LEVEL 8.8 MG/DL (8.5-10.1); CARBON DIOXIDE LEVEL 25 MMOL/L (20-31); CHLORIDE LEVEL 107 MMOL/L (98-107); COMPLEMENT C4 28.3 MG/DL (12-36); CREATININE FOR GFR 0.72 MG/DL (0.55-1.30); GLOMERULAR FILTRATION RATE > 60.0 (>51); GLUCOSE, FASTING 100 MG/DL (60-100); POTASSIUM SERUM 3.7 MMOL/L (3.5-5.1); SODIUM LEVEL 141 MMOL/L (136-145); TOTAL PROTEIN 6.6 G/DL (5.7-8.2)
[2024-02-08 09:47] LABS: CREATININE,RANDOM URINE 276.2 MG/DL
[2024-02-11 11:08] LABS: ANTI DS-DNA AB Negative (Negative); COMPLEMENT TOTAL (CH50) > 60 U/mL (>41)
== END ==
LOC: M LAB 07:30
PROVIDERS: ATTEND Internal Medicine Rheumatology
DX: R76.8 Other specified abnormal immunological findings in serum (principal); M35.3 Polymyalgia rheumatica; I73.00 Raynaud's syndrome without gangrene; H04.123 Dry eye syndrome of bilateral lacrimal glands; R21 Rash and other nonspecific skin eruption; M46.1 Sacroiliitis, not elsewhere classified

== ENCOUNTER 2024-04-17 10:05 | Emergency (ER) | payer BC ==
[~2024-04-17] VITALS: Ht 160 cm; Wt 88.7 kg
[~2024-04-17 10:05] MED LIST changes: +ONDA-282 PO; -ONDA4TAB6 PO
[2024-04-17] MEDS: NS 1,000 ML IV ONE (11:35)
[2024-04-17 12:05] LABS: BASO # 0.1 10^3/uL (0.0-0.2); BASO % 0.7 % (0.0-1.0); EOS # 0.2 10^3/uL (0.0-0.5); EOS % 2.8 % (0.0-3.0); HEMATOCRIT 43.7 % (36.0-47.0); HEMOGLOBIN 13.7 g/dl (12.0-15.5); LYMPH # 1.7 10^3/uL (1.5-5.0); LYMPH % 20.5 % (24.0-44.0); MEAN CORPUSCULAR HEMOGLOBIN 28.7 pg (27.0-33.0); MEAN CORPUSCULAR HGB CONC 31.4 g/dl (32.0-36.5); MEAN CORPUSCULAR VOLUME 91.6 fl (80.0-96.0); MONO # 0.6 10^3/uL (0.0-0.8); MONO % 7.5 % (2.0-8.0); NEUTROPHILS # 5.6 10^3/uL (1.5-8.5); NEUTROPHILS % 68.3 % (36.0-66.0); PLATELET COUNT, AUTOMATED 275 10^3/uL (150-450); RED BLOOD COUNT 4.77 10^6/uL (4.00-5.40); WHITE BLOOD COUNT 8.2 10^3/uL (4.0-10.0)
[2024-04-17] MEDS ORDERED: ISOVUE-370 76% 100ML VIAL As Ordered ONE (12:14)
[2024-04-17] MEDS: ONDANSETRON 4MG 2ML VIAL IV ONE (12:37)
[2024-04-17] MEDS: ACETAMINOPHEN *IV* 1,000 MG in IV 1 EA IV ONE (12:37)
[2024-04-17 13:59] LABS: LIPASE 47 U/L (12-53)
[2024-04-17 14:05] LABS: ALBUMIN 3.2 G/DL (3.2-5.2); ALKALINE PHOSPHATASE 77 U/L (46-116); ALT/SGPT 32 U/L (7.0-40); AST/SGOT 29 U/L (<34); BILIRUBIN,DIRECT 0.1 MG/DL (<0.4); BILIRUBIN,TOTAL 0.5 MG/DL (0.3-1.2); BLOOD UREA NITROGEN 17 MG/DL (9-23); CALCIUM LEVEL 8.5 MG/DL (8.5-10.1); CARBON DIOXIDE LEVEL 22 MMOL/L (20-31); CHLORIDE LEVEL 111 MMOL/L (98-107); GLOMERULAR FILTRATION RATE > 60.0 (>51); GLUCOSE, FASTING 75 MG/DL (60-100); POTASSIUM SERUM 4.2 MMOL/L (3.5-5.1); SODIUM LEVEL 141 MMOL/L (136-145); TOTAL PROTEIN 6.5 G/DL (5.7-8.2)
[2024-04-17] MEDS: AUGMENTIN 875 MG TAB PO ONE (14:54)
[2024-04-17] MEDS ORDERED: ONDA-282 PO (15:02)
[2024-04-17] MEDS ORDERED: AMOX875T2 PO (15:02)
[2024-04-17 15:19] VITALS: BP 114/75; TEMP 97.2; O2SAT 96
== END 2024-04-17 15:21 | disposition home or self-care (01) ==
LOC: M ED 10:05
DX: K57.32 Diverticulitis of large intestine without perforation or abscess without bleeding (principal); J45.909 Unspecified asthma, uncomplicated; K21.9 Gastro-esophageal reflux disease without esophagitis; K58.9 Irritable bowel syndrome, unspecified; Z85.41 Personal history of malignant neoplasm of cervix uteri; Z79.899 Other long term (current) drug therapy; Z88.5 Allergy status to narcotic agent
CPT/HCPCS: 74177; 80048; 80076; 83605; 83690; 85025; 96361; 96365; 96375; 99284; J0131; J2405; Q9967

== ENCOUNTER → 2024-05-09 | Outpatient (CLI) | payer BC ==
[~2024-05-09] MED LIST changes: +AMOX875T2 PO
== END ==
LOC: M WHC 10:32
PROVIDERS: ATTEND Nurse Practitioner Family
DX: Z12.31 Encounter for screening mammogram for malignant neoplasm of breast (principal); R92.313 Mammographic fatty tissue density, bilateral breasts

== ENCOUNTER → 2024-05-09 | Outpatient (REF) | payer BC ==
[2024-05-12 13:02] LABS: HPV APTIMA Not Detected (Not Detected)
== END ==
LOC: M SFHCWAGY 15:15
PROVIDERS: ATTEND Nurse Practitioner Family
DX: Z12.72 Encounter for screening for malignant neoplasm of vagina (principal)
CPT/HCPCS: 87624; G0123

== ENCOUNTER → 2024-05-26 | Outpatient (CLI) | payer BC ==
[2024-05-26 07:04] LABS: HEMATOCRIT 42.5 % (36.0-47.0); HEMOGLOBIN 13.4 g/dl (12.0-15.5); MEAN CORPUSCULAR HEMOGLOBIN 27.9 pg (27.0-33.0); MEAN CORPUSCULAR HGB CONC 31.5 g/dl (32.0-36.5); MEAN CORPUSCULAR VOLUME 88.5 fl (80.0-96.0); PLATELET COUNT, AUTOMATED 330 10^3/uL (150-450); WHITE BLOOD COUNT 6.3 10^3/uL (4.0-10.0)
[2024-05-26 07:28] LABS: IRON (FE) 61 UG/DL (50-170); PERCENT SATURATION 16.1 % (13.2-45.0); TOTAL IRON BINDING CAPACITY 380 UG/DL (250-425)
[2024-05-26 07:30] LABS: THYROID STIMULATING HORMONE 4.249 uIU/ML (0.55-4.78); THYROXINE (T4) 8.6 UG/DL (4.5-10.9); TOTAL 25(OH) VITAMIN D 32.5 NG/ML (20.0-100.0)
[2024-05-26 07:34] LABS: ALBUMIN 3.5 G/DL (3.2-5.2); ALKALINE PHOSPHATASE 79 U/L (46-116); ALT/SGPT 34 U/L (7.0-40); AST/SGOT 22 U/L (<34); BILIRUBIN,TOTAL 0.4 MG/DL (0.3-1.2); BLOOD UREA NITROGEN 22 MG/DL (9-23); CALCIUM LEVEL 9.7 MG/DL (8.5-10.1); CARBON DIOXIDE LEVEL 29 MMOL/L (20-31); CHLORIDE LEVEL 106 MMOL/L (98-107); CHOLESTEROL LEVEL 191 MG/DL (<200); CHOLESTEROL RISK RATIO 5.17 (<5); CREATININE FOR GFR 0.82 MG/DL (0.55-1.30); GLOMERULAR FILTRATION RATE > 60.0 (>51); GLUCOSE, FASTING 104 MG/DL (60-100); HDL CHOLESTEROL 36.9 MG/DL (>40); LDL CHOLESTEROL 106.7 MG/DL (<100); NON-HDL-C 154.1 MG/DL; POTASSIUM SERUM 3.8 MMOL/L (3.5-5.1); SODIUM LEVEL 141 MMOL/L (136-145); TOTAL PROTEIN 7.5 G/DL (5.7-8.2); TOTAL T3 159.8 NG/DL (60.0-181.0); TRIGLYCERIDES LEVEL 237 MG/DL (<150)
[2024-05-26 07:41] LABS: HEMOGLOBIN A1c 5.8 % (4.0-6.0)
== END ==
LOC: M LAB 06:37
PROVIDERS: ATTEND Family Medicine
DX: I10 Essential (primary) hypertension (principal); R53.83 Other fatigue; E03.9 Hypothyroidism, unspecified; D64.9 Anemia, unspecified

== ENCOUNTER → 2024-10-17 | Outpatient (CLI) | payer BC ==
[~2024-10-17] MED LIST changes: -BYST10TA2 PO; +BYST1TAB3 PO
[2024-10-17 08:27] LABS: HEMATOCRIT 43.4 % (36.0-47.0); MEAN CORPUSCULAR HEMOGLOBIN 28.9 pg (27.0-33.0); MEAN CORPUSCULAR HGB CONC 32.3 g/dl (32.0-36.5); MEAN CORPUSCULAR VOLUME 89.7 fl (80.0-96.0); PLATELET COUNT, AUTOMATED 255 10^3/uL (150-450); RED BLOOD COUNT 4.84 10^6/uL (4.00-5.40); WHITE BLOOD COUNT 6.3 10^3/uL (4.0-10.0)
[2024-10-17 08:54] LABS: HEMOGLOBIN A1c 5.8 % (4.0-6.0)
[2024-10-17 09:03] LABS: ALBUMIN 3.3 G/DL (3.2-5.2); ALKALINE PHOSPHATASE 71 U/L (35-104); ALT/SGPT 36 U/L (7.0-40); AST/SGOT 23 U/L (<34); BILIRUBIN,TOTAL 0.4 MG/DL (0.3-1.2); BLOOD UREA NITROGEN 26 MG/DL (9-23); CALCIUM LEVEL 9.3 MG/DL (8.5-10.1); CARBON DIOXIDE LEVEL 25 MMOL/L (20-31); CHLORIDE LEVEL 110 MMOL/L (98-107); CHOLESTEROL LEVEL 202 MG/DL (<200); CREATININE FOR GFR 0.71 MG/DL (0.55-1.30); GLOMERULAR FILTRATION RATE > 60.0 (>51); GLUCOSE, FASTING 96 MG/DL (60-100); HDL CHOLESTEROL 37.4 MG/DL (>40); LDL CHOLESTEROL 115.6 MG/DL (<100); NON-HDL-C 164.6 MG/DL; POTASSIUM SERUM 3.9 MMOL/L (3.5-5.1); SODIUM LEVEL 144 MMOL/L (136-145); TOTAL PROTEIN 7.3 G/DL (5.7-8.2); TRIGLYCERIDES LEVEL 245 MG/DL (<150)
[2024-10-17 09:04] LABS: THYROID STIMULATING HORMONE 3.345 uIU/ML (0.55-4.78)
[2024-10-17 09:05] LABS: FREE T4 1.21 NG/DL (0.89-1.76); TOTAL 25(OH) VITAMIN D 28.9 NG/ML (20.0-100.0)
[2024-10-17 09:07] LABS: FREE T3 3.6 PG/ML (2.3-4.2)
== END ==
LOC: M LAB 07:06
PROVIDERS: ATTEND Family Medicine
DX: D64.9 Anemia, unspecified (principal); E03.9 Hypothyroidism, unspecified; R53.83 Other fatigue

== ENCOUNTER → 2024-11-16 | Outpatient (CLI) | payer BC ==
[2024-11-16 08:09] LABS: HEMATOCRIT 42.9 % (36.0-47.0); MEAN CORPUSCULAR HEMOGLOBIN 29.2 pg (27.0-33.0); MEAN CORPUSCULAR HGB CONC 32.6 g/dl (32.0-36.5); MEAN CORPUSCULAR VOLUME 89.4 fl (80.0-96.0); PLATELET COUNT, AUTOMATED 325 10^3/uL (150-450); WHITE BLOOD COUNT 6.8 10^3/uL (4.0-10.0)
[2024-11-16 08:26] LABS: INR 0.92; PROTHROMBIN TIME 12.7 SECONDS (12.5-14.5)
[2024-11-16 08:31] LABS: HEMOGLOBIN A1c 5.7 % (4.0-6.0)
[2024-11-16 08:35] LABS: ALBUMIN 3.5 G/DL (3.2-5.2); ALKALINE PHOSPHATASE 73 U/L (35-104); ALT/SGPT 42 U/L (7.0-40); AST/SGOT 24 U/L (<34); BILIRUBIN,TOTAL 0.5 MG/DL (0.3-1.2); BLOOD UREA NITROGEN 18 MG/DL (9-23); CALCIUM LEVEL 9.5 MG/DL (8.5-10.1); CARBON DIOXIDE LEVEL 28 MMOL/L (20-31); CHLORIDE LEVEL 104 MMOL/L (98-107); CHOLESTEROL LEVEL 194 MG/DL (<200); CHOLESTEROL RISK RATIO 4.45 (<5); CREATININE FOR GFR 0.81 MG/DL (0.55-1.30); GLOMERULAR FILTRATION RATE > 60.0 (>51); GLUCOSE, FASTING 94 MG/DL (60-100); HDL CHOLESTEROL 43.5 MG/DL (>40); LDL CHOLESTEROL 87.5 MG/DL (<100); NON-HDL-C 150.5 MG/DL; POTASSIUM SERUM 4.1 MMOL/L (3.5-5.1); SODIUM LEVEL 142 MMOL/L (136-145); TOTAL PROTEIN 7.7 G/DL (5.7-8.2); TRIGLYCERIDES LEVEL 315 MG/DL (<150)
[2024-11-16 08:36] LABS: THYROID STIMULATING HORMONE 2.775 uIU/ML (0.55-4.78); TOTAL 25(OH) VITAMIN D 28.6 NG/ML (20.0-100.0)
== END ==
LOC: M RAD 06:58
PROVIDERS: ATTEND Family Medicine
DX: I10 Essential (primary) hypertension (principal); R53.83 Other fatigue; E03.9 Hypothyroidism, unspecified

== ENCOUNTER → 2025-05-16 | Outpatient (CLI) | payer BC ==
[~2025-05-16] MED LIST changes: -PHEN-239 PO; +PHEN37.511 PO
[2025-05-16 09:40] LABS: PLATELET COUNT, AUTOMATED 305 10^3/uL (150-450)
[2025-05-16 09:54] LABS: ERYTHROCYTE SEDIMENTATION RATE 49 mm/hr (0-30)
[2025-05-16 10:06] LABS: ALT/SGPT 66 U/L (7.0-40); AST/SGOT 44 U/L (<34); C REACTIVE PROTEIN QUANTITATIV < 0.50 MG/DL (<1.0); CALCIUM LEVEL 9.7 MG/DL (8.5-10.1); CARBON DIOXIDE LEVEL 27 MMOL/L (20-31); CHLORIDE LEVEL 107 MMOL/L (98-107); CREATININE FOR GFR 0.71 MG/DL (0.55-1.30); GLOMERULAR FILTRATION RATE > 90.0 (>51); IRON (FE) 68 UG/DL (50-170); PERCENT SATURATION 19.7 % (13.2-45.0); POTASSIUM SERUM 3.9 MMOL/L (3.5-5.1); SODIUM LEVEL 143 MMOL/L (136-145)
[2025-05-20 02:27] LABS: ANTI-SACCHAROMYCES CEREV. IgA 7.1 U (<=20.0); ANTI-SACCHAROMYCES CEREV. IgG 8.7 U (<=20.0)
== END ==
LOC: M LAB 08:16
PROVIDERS: ATTEND Internal Medicine Gastroenterology
DX: K52.9 Noninfective gastroenteritis and colitis, unspecified (principal); K59.1 Functional diarrhea; Z80.0 Family history of malignant neoplasm of digestive organs; K44.9 Diaphragmatic hernia without obstruction or gangrene; K57.30 Diverticulosis of large intestine without perforation or abscess without bleeding

== ENCOUNTER → 2025-07-06 | Outpatient (REF) | payer BC ==
[~2025-07-06] MED LIST changes: -IBUP-1022 PO; -IBUP1TAB6 PO; +IBUP600T42 PO; +SFHIBU600 PO
== END ==
LOC: M SFHCLERA 17:18
PROVIDERS: ATTEND Student in an Organized Health Care Education/Training Program
DX: R09.89 Other specified symptoms and signs involving the circulatory and respiratory systems (principal)